=== PATIENT | male | born 1950 | race Two or more races ===

== ENCOUNTER 2019-07-31 09:27 | Inpatient (IN) | payer OTHER ==
[2019-07-23 15:49] VITALS: BMI 30.2
--- NOTE | 2019-07-31 08:01 | HP ---
Satellite [facility] - Chief Complaint Chief Complaint: right knee pain - Past Medical History Allergies/Adverse Reactions: Allergies Allergy/AdvReac Type Severity Reaction Status Date / Time Penicillins Allergy Verified 07/23/19 15:20 - Current Medications Current Medications: Home Medications Medication Instructions Recorded Gabapentin 100 mg PO ASDIR PRN 07/23/19 Lisinopril 5 mg PO DAILY 07/23/19 Methimazole 5 mg PO BID 07/23/19 Metoprolol Succinate [Toprol Xl] 50 mg PO DAILY 07/23/19 Oxycodone HCl/Acetaminophen 1 each PO ASDIR PRN 07/23/19 [Percocet 10-325 mg Tablet] Simvastatin 10 mg PO DAILY 07/23/19 Tamsulosin HCl 0.4 mg PO DAILY 07/23/19 Satellite Physical Exam - Physical Examination General Appearance: Well Nourished, Well Developed, Alert & Oriented x3 ENT: Clear Lung: Normal air movement Extremities: Other (right knee- + swelling, + ttp, decr rom, nvi, xrays show grade 4 tricompartmental djd) Neurological: Intact, Alert, Oriented Satellite Impression/Plan - Impression/Plan Impression: right knee djd Operative Procedure: right randy tkr Date to be Performed: 07/31/19
[2019-07-31] MEDS ORDERED: CELECOXIB 200 MG CAPSULE PO ONE (09:39)
[2019-07-31] MEDS ORDERED: TRANEXAMIC ACID 1000 MG/10 ML VIAL IVPUSH ONE (09:39)
[2019-07-31] MEDS ORDERED: CEFAZOLIN 3 GM in DEXTROSE 5%-WATER - 100 ML IVPB ONE (09:39)
[2019-07-31] MEDS ORDERED: SODIUM CHLORIDE 0.9% P/F 10 ML VIAL IJ ONE (10:16)
[2019-07-31] MEDS ORDERED: MIDAZOLAM HCL 2 MG/2 ML SINGLE DOSE VIAL ONE (10:16)
[2019-07-31] MEDS ORDERED: BUPIVACAINE LIPOSOME/PF (EXPAREL) 266 MG/20 ML VIAL ONE (10:16)
[2019-07-31] MEDS ORDERED: PROPOFOL 20 ML ONE ×2 (10:28→13:18)
[2019-07-31] MEDS ORDERED: VANCOMYCIN 1,000 MG VIAL (RESTRICTED TO ID ONLY) ONE (10:45)
[2019-07-31] MEDS ORDERED: ceFAZolin SODIUM 1 GM VIAL ONE ×2 (10:45→19:49)
[2019-07-31] MEDS ORDERED: GABAPENTIN 100 MG CAPSULE (FP) PO PRN (11:52)
[2019-07-31] MEDS ORDERED: ONDANSETRON 4 MG/2 ML VIAL IVPUSH PRN (11:53)
[2019-07-31] MEDS ORDERED: MAGNESIUM HYDROX 2400MG/30ML ORAL SUSPENSION 30 ML CUP PO PRN (11:53)
[2019-07-31] MEDS ORDERED: MAG HYDROX/AL HYDROX/SIMETH 30 ML UNIT-DOSE CUP PO PRN (11:53)
[2019-07-31] MEDS ORDERED: LACTATED RINGERS SOLUTION 1,000 ML IV SCH (12:00)
[2019-07-31] MEDS ORDERED: VASOPRESSIN 20 UNITS/ML VIAL IV ONE (12:48)
[2019-07-31] MEDS ORDERED: ceFAZolin SODIUM 1 GM VIAL IVPB ONE (13:02)
[2019-07-31] MEDS ORDERED: oxyCODONE HCL 5 MG TABLET PO PRN (13:04)
[2019-07-31] MEDS ORDERED: ACETAMINOPHEN 325 MG TABLET (FP) PO SCH (13:15)
[2019-07-31] MEDS ORDERED: VANCOMYCIN 1,000 MG VIAL (RESTRICTED TO ID ONLY) IVPB ONE (13:34)
--- NOTE | 2019-07-31 13:59 | OP ---
Operative Note - Note: Operative Date: 07/31/19 (gerhard) Pre-Operative Diagnosis: right knee djd Operation: right randy tkr Post-Operative Diagnosis: Same as Pre-op Surgeon: David Grace Lead Manufacturing Engineering Tech: Adria Washington Anesthesiologist/CHIEF PROGRAM OFFICER: Ryan Ruiz Anesthesia: Spinal, Local Specimens Removed: bone fragments Estimated Blood Loss (mls): 150
[2019-07-31] MEDS ORDERED: ACETAMINOPHEN 325 MG TABLET (FP) ONE (14:52)
--- NOTE | 2019-07-31 15:17 | SPEC ---
DATE OF OPERATION: 07/31/2019 PREOPERATIVE DIAGNOSIS: Degenerative joint disease, right knee. POSTOPERATIVE DIAGNOSIS: Degenerative joint disease, right knee. PROCEDURE: Right total knee replacement with robotic-assisted navigation (MAKOplasty). SURGICAL ATTENDING: David Grace MD PIPELINE OPERATOR: SANAZ Villanueva ANESTHESIA: Regional and spinal. CLOSURE: A Press-Fit Triathlon knee system with a 5 femur, 6 tibia, 9 polyethylene, a 38 patella; No. 1 Vicryl fascia; 0 and 2-0 for subcutaneous; and 3-0 Monocryl subcuticular with skin glue for skin; 4-0 undyed Vicryl for pin sites. ESTIMATED BLOOD LOSS: Less than 100 mL. COMPLICATIONS: None. CONDITION: To recovery room in stable condition. DESCRIPTION OF OPERATIVE PROCEDURE: Patient was taken to the operating room on July 31, 2019. Regional and spinal anesthesia was administered by the anesthesiologist. IV Kefzol was administered prophylactically prior to the case as well as TXA. The right lower extremity was prepped and draped in the usual sterile fashion. The midline 10- to 12-cm longitudinal incision was made. Hemostasis was achieved with Bovie cautery. Sharp dissection was carried down to the extensor mechanism which was perform the procedure. Medial parapatellar arthrotomy was then performed, leaving a cuff of tissue for later closure. The patella was inverted and the knee was flexed up. The fat pad was excised. Subperiosteal dissection was done on the anteromedial proximal tibia until the knee was able to be brought forward. This was facilitated by taking the ACL, PCL and medial and lateral menisci. Checkpoints were placed in both the femur and in the tibia. Two parallel threaded pins were drilled superior to the knee joint through the already made incision from anterior to posterior just going through the anterior cortex but just engaging but not going through the posterior cortex. Two threaded pins were drilled through 2 small stab incisions in parallel fashion 1 handbreadth below the tibial tubercle through the anterior cortex of the tibia and engaging but not going through the posterior cortex. Both sets of pins were attached to navigation arrays for the HARLEY system. The knee was then registered with the navigation system with center of rotation of the hip, medial and lateral malleoli and multiple sites both on the tibia and on the femur. Confirmation of excellent registration was confirmed by "popping the bubbles." At this time, the knee was thoroughly inspected to remove all osteophytes around the knee. The knee was then tensioned in varus/valgus at both full extension and at 90 degrees of flexion to ascertain our gaps. The virtual position of the components was optimized to ensure equal gaps throughout the range of motion. Once this was performed, the robot was brought into the field, was registered. The bone was cut as per the specifications on both the tibia and on the femur. The box cuts were then made as well. Excellent trial stability was obtained on the femur. The tibial baseplate was allowed to "find itself" and then was clipped into place. Confirmation of excellent external rotation of that component was confirmed by the navigation device as well.The patella was calibered for thickness and cut at the appropriate level. The appropriate lollipop was used to drill 3 holes in the patella and a trial asymmetric patellar button was applied. The knee was taken through a range of motion and found to have excellent stability from full extension to full flexion with excellent tracking of the patella. The trial components were then removed. The lug holes were drilled in the femur. The cementless keel was punched in the tibia. The real Press-Fit components were malleted into place, first with the tibia and then with the femur, and then the patella was crimped into place as well. The real polyethylene liner was then clipped into place. Range of motion, stability and tracking were as described earlier. The knee was thoroughly irrigated with copious amounts of irrigation. Vancomycin powder was placed inside the joint. The medial parapatellar arthrotomy was then closed using No. 1 Vicryl interrupted suture. Post closure of the arthrotomy, the knee was taken through a range of motion and found to have no undue tension on the repair. The subcutaneous was then pulse antibiotic irrigated, closed with 0 and 2-0 Vicryl and 3-0 Monocryl subcuticular with skin glue for the skin. Prior to closure, the checkpoints were removed as were the threaded pins. The tibial pin sites were closed with 4-0 undyed Vicryl. A sterile pressure Aquacel dressing was applied. No tourniquet was used during the case. The total blood loss was approximately 100 mL. No complication. Patient was transferred to recovery in stable condition. Dana [id number]
[2019-07-31] MEDS: oxyCODONE HCL 5 MG TABLET PO PRN ×2 (17:19→19:57)
[2019-07-31] MEDS ORDERED: DEXTROSE 5%-WATER 100 ML IVPB ONE (19:50)
[2019-07-31] MEDS: CEFAZOLIN 3 GM in DEXTROSE 5%-WATER 100 ML IVPB SCH (19:57)
[2019-07-31] MEDS: oxyCODONE HCL 10 MG SUSTAINED ACTING TABLET PO SCH (21:10)
[2019-07-31] MEDS: traMADol HCL 50 MG TABLET PO PRN (21:10)
[2019-07-31] MEDS: SENNOSIDES/DOCUSATE COMBO (SENNA PLUS) TABLET (UD) PO SCH (21:10)
[2019-07-31] MEDS: METHIMAZOLE 5 MG TABLET (FP) PO SCH (21:10)
[2019-07-31] MEDS: ACETAMINOPHEN 325 MG TABLET (FP) PO SCH (21:11)
[2019-07-31] MEDS ORDERED: HYDROmorphone HCL CARPU-JECT 1 MG/1 ML DISP.SYRIN ONE (22:32)
[2019-07-31] MEDS ORDERED: HYDROmorphone HCL CARPU-JECT 1 MG/1 ML DISP.SYRIN IVPB ONE (22:45)
[2019-07-31] MEDS ORDERED: HYDROmorphone HCL CARPU-JECT 2 MG/1 ML DISP.SYRIN IVPB ONE (22:45)
[2019-08-01] MEDS: oxyCODONE HCL 5 MG TABLET PO PRN ×4 (00:05→18:02)
[2019-08-01] MEDS: ACETAMINOPHEN 325 MG TABLET (FP) PO SCH ×4 (03:00→21:08)
[2019-08-01] MEDS: CEFAZOLIN 3 GM in DEXTROSE 5%-WATER 100 ML IVPB SCH (03:54)
[2019-08-01] MEDS: LISINOPRIL 5 MG TABLET (FP) PO SCH ×2 (06:23→09:47)
--- NOTE | 2019-08-01 07:58 | CONSULT ---
Consult - History of Present Illness History of Present Illness: S/P KNEE REPLACEMENT NO CP OR SOB - Past Medical History Cardio/Vascular: Yes: CAD (s/p stenting), HTN, Hyperlipdemia, [place] Gastrointestinal: Yes: Cancer (colon) Renal/: Yes: Cancer (prostate), Renal Calculi Endocrine: Yes: Diabetes Mellitus - Alcohol/Substance Use Hx Alcohol Use: Yes (7 BEER/DAY,OR COUPLE OF DRINKS) - Smoking History Smoking history: Current every day smoker Have you smoked in the past 12 months: Yes Aproximately how many cigarettes per day: 6 Home Medications - Allergies Allergies/Adverse Reactions: Allergies Allergy/AdvReac Type Severity Reaction Status Date / Time Penicillins Allergy Intermediate Rash Verified 07/31/19 10:09 - Home Medications Home Medications: Ambulatory Orders Gabapentin 100 mg PO ASDIR PRN 07/23/19 Lisinopril 5 mg PO DAILY 07/23/19 Methimazole 5 mg PO BID 07/23/19 Metoprolol Succinate [Toprol Xl] 50 mg PO DAILY 07/23/19 Simvastatin 10 mg PO DAILY 07/23/19 Tamsulosin HCl 0.4 mg PO DAILY 07/23/19 Review of Systems - Review of Systems Cardiovascular: reports: No Symptoms. denies: Chest Pain Respiratory: reports: No Symptoms Gastrointestinal: reports: No Symptoms Genitourinary: reports: No Symptoms Musculoskeletal: reports: Joint Pain, Joint Swelling Physical Exam Vital Signs: Vital Signs Temperature 98.1 F 08/01/19 06:00 Pulse Rate 110 H 08/01/19 07:01 Respiratory Rate 18 08/01/19 07:01 Blood Pressure 137/64 08/01/19 07:01 O2 Sat by Pulse Oximetry (%) 97 08/01/19 06:00 Cardiovascular: Yes: Tachycardia, S1, S2 Respiratory: Yes: Regular, CTA Bilaterally Gastrointestinal: Yes: Normal Bowel Sounds, Soft Musculoskeletal: Yes: Joint Stiffness, Joint Swelling Problem List - Problems (1) S/P knee replacement Assessment/Plan: DVT PROPHYLAXIS ORTHO PT Code(s): Z96.659 - PRESENCE OF UNSPECIFIED ARTIFICIAL KNEE JOINT (2) Hyperthyroidism Assessment/Plan: CHECK TSH ON TAPAZOLE Code(s): E05.90 - THYROTOXICOSIS, UNSP WITHOUT THYROTOXIC CRISIS OR STORM (3) History of colon cancer Code(s): Z85.038 - PERSONAL HISTORY OF MALIGNANT NEOPLASM OF LARGE INTESTINE (4) Tachycardia Assessment/Plan: EKG TSH Code(s): R00.0 - TACHYCARDIA, UNSPECIFIED
[2019-08-01 07:59] LABS: HEMOGLOBIN 10.6 GM/dl (11.7-16.9); MCH 28.7 pg (25.7-33.7); MCHC 33.1 g/dl (32.0-35.9); MEAN CELL VOLUME 86.9 fl (80-96); MEAN PLT VOLUME 8.6 fl (7.5-11.1); PLATELET COUNT 200 K/MM3 (134-434); RBC 3.68 M/mm3 (4.00-5.60); RDW 14.8 % (11.9-15.9); WHITE BLOOD COUNT 8.5 K/mm3 (4.0-10.8)
[2019-08-01 09:03] LABS: ALBUMIN 3.5 g/dl (3.4-5.0); BILIRUBIN,TOTAL 0.9 mg/dl (0.2-1); CALCIUM 9.1 mg/dl (8.5-10); CREATININE 1.5 mg/dl (0.55-1.3); POTASSIUM 4.6 mmol/L (3.5-5.1); TOT PROT 6.9 g/dl (6.4-8.2)
--- NOTE | 2019-08-01 09:18 | PN ---
Progress Note (short form) - Note Progress Note: 69M POD1 s/p right TKR under spinal anesthetic with peripheral nerve blocks for post operative pain relief. Pt states that pain is well controlled and reports no anesthetic complications. AVSS. Continue current regimen.
[2019-08-01] MEDS: ASPIRIN 325 MG TABLET PO SCH (09:43)
[2019-08-01] MEDS: TAMSULOSIN HCL 0.4 MG CAP PO SCH (09:44)
[2019-08-01] MEDS: traMADol HCL 50 MG TABLET PO PRN (09:45)
[2019-08-01] MEDS: ATORVASTATIN CA 10 MG TABLET (FP) PO SCH (09:45)
[2019-08-01] MEDS: oxyCODONE HCL 10 MG SUSTAINED ACTING TABLET PO SCH ×2 (09:46→21:07)
[2019-08-01] MEDS: SENNOSIDES/DOCUSATE COMBO (SENNA PLUS) TABLET (UD) PO SCH ×2 (09:46→21:07)
[2019-08-01] MEDS: MULTIVITAMINS (DAILY MVI) TABLET (FP) PO SCH (09:47)
[2019-08-01] MEDS: PANTOPRAZOLE 40 MG TABLET (FP) PO SCH (09:47)
[2019-08-01] MEDS: METHIMAZOLE 5 MG TABLET (FP) PO SCH ×2 (09:48→21:07)
[2019-08-01] MEDS ORDERED: PATIENT'S OWN MEDICATION (NON-FORMULARY) (Simvastatin [Simvastatin] 10 MG) PO SCH (10:00)
--- NOTE | 2019-08-01 10:22 | PN ---
Progress Note (short form) - Note Progress Note: Ortho Pt seen and examined s/p right randy tkr pod #1 Selected Entries 08/01/19 09:35 Temperature 99.1 F Pulse Rate 105 H Respiratory 18 Rate Blood Pressure 107/60 Laboratory Tests 08/01/19 07:30 WBC 8.5 Hgb 10.6 L Hct 32.0 L Plt Count 200 dressing c/d/i, calf soft ,nt rom 0-40, nvi a/p PT dvt ppx pain control d/c home tomorrow if stable
--- NOTE | 2019-08-01 10:37 | EKG ---
Test Reason : Blood Pressure : / mmHG Vent. Rate : 108 BPM Atrial Rate : 108 BPM P-R Int : 154 ms QRS Dur : 100 ms QT Int : 324 ms P-R-T Axes : 065 -29 069 degrees QTc Int : 434 ms SINUS TACHYCARDIA CANNOT RULE OUT ANTERIOR INFARCT , AGE UNDETERMINED ABNORMAL ECG NO PREVIOUS ECGS AVAILABLE Confirmed by HAYLIE QURESHI, VENKATESH ([id number]) on 08/01/2019 10:36:59 AM Referred By: David Grace Confirmed By:VENKATESH STALLINGS MD
[2019-08-02] MEDS: oxyCODONE HCL 5 MG TABLET PO PRN ×3 (01:44→22:02)
[2019-08-02] MEDS: ACETAMINOPHEN 325 MG TABLET (FP) PO SCH ×4 (02:35→22:02)
[2019-08-02 08:07] LABS: HEMATOCRIT 29.4 % (35.4-49); HEMOGLOBIN 9.4 GM/dl (11.7-16.9); MCH 28.3 pg (25.7-33.7); MCHC 32.1 g/dl (32.0-35.9); MEAN CELL VOLUME 88.3 fl (80-96); MEAN PLT VOLUME 8.7 fl (7.5-11.1); PLATELET COUNT 190 K/MM3 (134-434); RBC 3.32 M/mm3 (4.00-5.60); RDW 15.1 % (11.9-15.9); WHITE BLOOD COUNT 11.2 K/mm3 (4.0-10.8)
--- NOTE | 2019-08-02 08:25 | PN ---
Progress Note (short form) - Note Progress Note: Ortho Pt seen and examined s/p right randy tkr pod #2 Selected Entries 08/02/19 06:00 Temperature 98.2 F Pulse Rate 96 H Respiratory 18 Rate Blood Pressure 115/58 L Laboratory Tests 08/02/19 07:17 WBC Pending Hgb Pending Hct Pending Plt Count Pending dressing c/d/i, calf soft ,nt rom 0-60, nvi a/p PT dvt ppx pain control d/c to snf tomorrow
[2019-08-02] MEDS: ASPIRIN 325 MG TABLET PO SCH (08:37)
[2019-08-02] MEDS: TAMSULOSIN HCL 0.4 MG CAP PO SCH (08:38)
[2019-08-02] MEDS: oxyCODONE HCL 10 MG SUSTAINED ACTING TABLET PO SCH ×2 (09:38→22:02)
[2019-08-02] MEDS: SENNOSIDES/DOCUSATE COMBO (SENNA PLUS) TABLET (UD) PO SCH ×2 (09:39→22:02)
[2019-08-02] MEDS: MULTIVITAMINS (DAILY MVI) TABLET (FP) PO SCH (09:39)
[2019-08-02] MEDS: LISINOPRIL 5 MG TABLET (FP) PO SCH (09:39)
[2019-08-02] MEDS: ATORVASTATIN CA 10 MG TABLET (FP) PO SCH (09:39)
[2019-08-02] MEDS: PANTOPRAZOLE 40 MG TABLET (FP) PO SCH (09:39)
[2019-08-02] MEDS: METHIMAZOLE 5 MG TABLET (FP) PO SCH ×2 (09:40→22:03)
--- NOTE | 2019-08-02 10:09 | PN ---
Progress Note, Physician Chief Complaint: AWAKE ALERT IN PT REHAB IN PAIN 02/05 - Current Medication List Current Medications: Active Medications Acetaminophen (Tylenol -) 650 mg PO Q6H [facility] Stop: 08/03/19 20:59 Last Admin: 08/02/19 09:37 Dose: 650 mg Al Hydroxide/Mg Hydroxide (Mylanta Oral Suspension -) 30 ml PO Q4H PRN PRN Reason: DYSPEPSIA Aspirin (Asa -) 325 mg PO DAILY@0800 [facility] Last Admin: 08/02/19 08:37 Dose: 325 mg Atorvastatin Calcium (Lipitor -) 10 mg PO DAILY [facility] Last Admin: 08/02/19 09:39 Dose: 10 mg Gabapentin (Neurontin -) 100 mg PO ASDIR PRN PRN Reason: PAIN Lisinopril (Prinivil) 5 mg PO DAILY [facility] [place] Last Admin: 08/02/19 09:39 Dose: 5 mg Magnesium Hydroxide (Milk Of Magnesia -) 30 ml PO PRN PRN PRN Reason: CONSTIPATION Methimazole (Tapazole -) 5 mg PO BID [facility] [place] Last Admin: 08/02/19 09:40 Dose: 5 mg Metoprolol Succinate (Toprol Xl -) 50 mg PO DAILY [facility] [place] Last Admin: 08/02/19 09:40 Dose: 50 mg Multivitamins/Minerals/Vitamin C (Tab-A-Vit -) 1 tab PO DAILY [facility] [place] Last Admin: 08/02/19 09:39 Dose: 1 tab Ondansetron HCl (Zofran Injection) 4 mg IVPUSH Q6H PRN PRN Reason: NAUSEA Oxycodone HCl (Roxicodone -) 5 mg PO Q3H PRN PRN Reason: PAIN LEVEL 4 - 6 Last Admin: 08/02/19 08:38 Dose: 5 mg Oxycodone HCl (Roxicodone -) 10 mg PO Q3H PRN PRN Reason: PAIN LEVEL 7 - 10 Last Admin: 08/02/19 01:44 Dose: 10 mg Oxycodone HCl (Oxycontin -) 10 mg PO BID [facility] [place] Stop: 08/03/19 13:05 Last Admin: 08/02/19 09:38 Dose: 10 mg Pantoprazole Sodium (Protonix -) 40 mg PO DAILY [facility] [place] Last Admin: 08/02/19 09:39 Dose: 40 mg Senna/Docusate Sodium (Pericolace -) 2 tablet PO BID [facility] [place] Last Admin: 08/02/19 09:39 Dose: 2 tablet Tamsulosin HCl (Flomax -) 0.4 mg PO DAILY@0830 [facility] [place] Last Admin: 08/02/19 08:38 Dose: 0.4 mg Tramadol HCl (Ultram -) 50 mg PO Q3H PRN PRN Reason: PAIN LEVEL 1 - 3 Last Admin: 08/01/19 09:45 Dose: 50 mg - Objective Vital Signs: Vital Signs Temperature 97.9 F 08/02/19 09:00 Pulse Rate 108 H 08/02/19 09:00 Respiratory Rate 18 08/02/19 09:00 Blood Pressure 110/62 08/02/19 09:00 O2 Sat by Pulse Oximetry (%) 98 08/02/19 06:00 Constitutional: Yes: Mild Distress Cardiovascular: Yes: Regular Rate and Rhythm Respiratory: Yes: WNL Genitourinary: Yes: WNL Musculoskeletal: Yes: Other Extremities: Yes: Other Integumentary: Yes: WNL Wound/Incision: Yes: Dressing Dry and Intact Neurological: Yes: Other ...Motor Strength: RLE Psychiatric: Yes: WNL Labs: CBC, BMP 08/02/19 07:17 08/01/19 08:25 Problem List - Problems (1) S/P knee replacement Code(s): Z96.659 - PRESENCE OF UNSPECIFIED ARTIFICIAL KNEE JOINT Assessment/Plan PT EVAL APPRECIATED TO [facility] TOM[facility]ROW FOR SNF DVT PROPHYLAXIS PAIN CONTROL TOLERATING PO DIET OOB TO CHAIR
--- NOTE | 2019-08-02 12:49 | PATH ---
Surgical Pathology Report Patient Name: MATT BLANCO Med. Rec. #: [id number] /Age/Gender: 1950 (Age: 69) / M Account: [id number] Location: [facility] MED-SURG Taken: 07/31/2019 Received: 07/31/2019 Reported: 08/02/2019 Physicians: David Grace M.D. Specimen(s) Received RIGHT KNEE BONES Clinical History Osteoarthritis right knee Final Diagnosis BONES, KNEE, RIGHT, TOTAL KNEE REPLACEMENT MAKOPLASTY: BONE WITH DEGENERATIVE JOINT DISEASE, FIBROADIPOSE TISSUE, AND SYNOVIUM. Electronically Signed Etta Vergara M.D. Gross Description Received in formalin labeled "right knee bones," is a 10.5 x 9.5 x 2.0 cm aggregate of multiple portions of bone and soft tissue. The tibial plateau measures 8.4 x 5.8 x 1.7 cm. There are multiple areas of eburnation present, measuring up to 2.5 cm in greatest dimension. The remaining articular surfaces are cody-brown and diffusely granular. The underlying trabecular bone is yellow and hard. Head Knitting Machine Fixer sections are submitted in one cassette, following decalcification. 08/01/201908/01/2019
[2019-08-03] MEDS: LISINOPRIL 5 MG TABLET (FP) PO SCH ×2 (05:54→09:23)
[2019-08-03] MEDS: ACETAMINOPHEN 325 MG TABLET (FP) PO SCH ×2 (06:26→09:28)
[2019-08-03] MEDS: oxyCODONE HCL 5 MG TABLET PO PRN (06:48)
[2019-08-03 06:57] VITALS: TEMP 98.5
--- NOTE | 2019-08-03 07:54 | DS ---
Physical Examination Vital Signs: Vital Signs Temperature 98.5 F 08/03/19 04:00 Pulse Rate 127 H 08/03/19 04:00 Respiratory Rate 20 08/03/19 04:00 Blood Pressure 98/46 L 08/03/19 04:00 O2 Sat by Pulse Oximetry (%) 96 08/03/19 04:00 Labs: CBC, BMP 08/02/19 07:17 08/01/19 08:25 Discharge Summary Problems reviewed: Yes Reason For Visit: OSTEOARTHRITIS Current Active Problems History of colon cancer (Acute) Hyperthyroidism (Acute) S/P knee replacement (Acute) Tachycardia (Acute) Procedures: Principal: right tkr Hospital Course: admitted for elective right randy tkr, post-op as per protocol, stable for d/c Condition: Good - Instructions Diet, Activity, Other Instructions: Post-op Instructions-Total Knee Replacement Call the office for a follow-up appointment in 1 week - [phone] Aspirin 325mg daily for 6 weeks. Pain medication was sent into your pharmacy. Apply Graduated Compression Stockings (TEDs) to both lower extremities- remove daily for hygiene ONLY Apply Sequential Compression Device (SCDs) to both Lower extremities remove for PT and hygiene ONLY Apply cold packs to affected area for 15 minutes every 2 hours. Physical Therapist will come to your home for the first 5 days. You will be set up with outpatient PT at your first post-operative visit. Patient may ambulate as tolerated-encourage self care (at least every 2-3 hours while awake) with walker or cane Maintain Aquacel (waterproof) dressing to operative wound (will be removed by surgeon at first office visit) Shower with Aquacel dressing in place-if Aquacel integrity compromised, remove and apply dry sterile dressing and notify Orthopedist. DO NOT SHOWER unless Orthopedists approves without Aquacel dressing CONTACT THE OFFICE FOR ANY CHANGE IN YOUR CONDITION (for example-fever greater than 102 degrees, excessive bleeding from operative site, purulent drainage, severe swelling or pain) GO TO THE EMERGENCY ROOM IF THERE IS A MEDICAL EMERGENCY Knee Precautions: * Keep a rolled towel under affected heel while in bed or chair (to keep knee in extension) * Keep affected leg elevated except during mealtimes * DO NOT PLACE PILLOW UNDER AFFECTED KNEE * If you have any questions, please do not hesitate to call the office - . Referrals: David Grace MD [Staff Physician] - Disposition: CARE HOME FACILITY - Home Medications Comprehensive Discharge Medication List: Ambulatory Orders Gabapentin 100 mg PO ASDIR PRN 07/23/19 Lisinopril 5 mg PO DAILY 07/23/19 Methimazole 5 mg PO BID 07/23/19 Metoprolol Succinate [Toprol Xl] 50 mg PO DAILY 07/23/19 Simvastatin 10 mg PO DAILY 07/23/19 Tamsulosin HCl 0.4 mg PO DAILY 07/23/19 Aspirin [ASA -] 325 mg PO DAILY@0800 tablet 08/03/19 oxyCODONE HCL [Roxicodone -] 5 mg PO Q6H PRN tablet MDD 8 08/03/19
[2019-08-03] MEDS: ASPIRIN 325 MG TABLET PO SCH (09:22)
[2019-08-03] MEDS: TAMSULOSIN HCL 0.4 MG CAP PO SCH (09:22)
[2019-08-03] MEDS: ATORVASTATIN CA 10 MG TABLET (FP) PO SCH (09:22)
[2019-08-03] MEDS: oxyCODONE HCL 10 MG SUSTAINED ACTING TABLET PO SCH (09:23)
[2019-08-03] MEDS: MULTIVITAMINS (DAILY MVI) TABLET (FP) PO SCH (09:23)
[2019-08-03] MEDS: PANTOPRAZOLE 40 MG TABLET (FP) PO SCH (09:23)
[2019-08-03] MEDS: SENNOSIDES/DOCUSATE COMBO (SENNA PLUS) TABLET (UD) PO SCH (09:23)
[2019-08-03] MEDS: METHIMAZOLE 5 MG TABLET (FP) PO SCH (09:23)
[2019-08-03 10:43] VITALS: BP 124/63; PULSE 112
== END 2019-08-03 09:00 | DRG 470 ==
LOC: FM/S 09:27
PROVIDERS: ADMIT Orthopaedic Surgery; ATTEND Orthopaedic Surgery
PROC: 8E0Y0CZ Robotic Assisted Procedure of Lower Extremity, Open Approach (ICD-10-PCS; 2019-07-31)
PROC: 0SRC0JA Replacement of Right Knee Joint with Synthetic Substitute, Uncemented, Open Approach (ICD-10-PCS; principal; 2019-07-31 12:40)
DX: M17.11 Unilateral primary osteoarthritis, right knee (principal); I25.10 Atherosclerotic heart disease of native coronary artery without angina pectoris; I10 Essential (primary) hypertension; E78.5 Hyperlipidemia, unspecified; I25.2 Old myocardial infarction; E11.9 Type 2 diabetes mellitus without complications; F17.210 Nicotine dependence, cigarettes, uncomplicated; E05.90 Thyrotoxicosis, unspecified without thyrotoxic crisis or storm; R00.0 Tachycardia, unspecified; N20.0 Calculus of kidney; Z85.038 Personal history of other malignant neoplasm of large intestine; Z85.46 Personal history of malignant neoplasm of prostate
CPT/HCPCS: 36415; 73560-TC-RT-FY; 80053; 84443; 85027; 93005; 94760; 97116-GP; 97163-GP

== ENCOUNTER 2019-08-08 11:56 | Inpatient (IN) | payer OTHER ==
--- NOTE | 2019-08-08 12:08 | PDOC ---
History of Present Illness - General Chief Complaint: Abnormal Lab Results (Outside) Stated Complaint: LOW HGB Time Seen by Provider: 08/08/19 12:04 History Source: Patient Exam Limitations: No Limitations - History of Present Illness Initial Comments: 08/08/19 12:08 HPI 69 YOM with h/o colon ca, hyperthyroidism, HTN, HLD, arthritis s/p rt TKR on , recently dc'd post op on 08/03/19 presenting from [facility] with anemia. c/o mild headache, but no other symptoms. recent rt TKR on 07/31/[address] Grace - no complications including bleeding post op. Denies fever, chills, chest pain, SOB, palpitation, dizziness, weakness, N, V, D , abdominal pain, bladder and bowel problems, focal weakness/paresthesias, leg swelling/pain, rash. Allergies: pcn Past Medical History/PSH: as above Social history: Lives with family. No tobacco, ETOH or drug use. Meds: as documented in EMR Family history: noncontributory PMD Dr Wilson/Taylor Review of systems Constitutional: no fevers or chills. No weakness HEENT: +headache No dizziness. No visual/hearing disturbances. CVS: no cp or syncope. Resp: no sob. No cough. Gastrointestinal: no abdominal pain, nausea, vomiting, diarrhea. no bloody stools Genitourinary: no urinary sx, hematuria. MUSCULOSKELETAL: No joint pain and swelling. No neck or back pain. SKIN: no redness or skin changes, no discharge, no rash. No wounds. Hematologic: no easy bruising/bleeding. +anemia. NEUROLOGIC: +headache, no dizziness, LOC or altered mental status. No weakness, numbness or tingling. Psych: no anxiety or depression Allergic/Immunologic: no allergies All other systems reviewed and negative, or as documented in HPI. Physical exam General: Well appearing, awake and alert, NAD. HEENT: NCAT, PERRL, EOMI, pale conjunctiva, anicteric, moist mucus membranes, clear oropharynx, no oral lesions.. Neck: neck supple, FROM Resp: CTAB, normal and even respirations, no respiratory distress CVS: regular rhythm +tachycardic, no murmurs, 2+ peripheral pulses throughout, no peripheral edema Abdomen: soft, NTND, no rebound or guarding. Rectal: no gross bleeding, no masses or hemorrhoids, soft brown stool, guaiac positive. Back: nontender, normal inspection and ROM MSK: no edema, BLUE x4, ROM intact. No clubbing or cyanosis. normal bulk and tone. +right vertical TKR scar, well healing, nontender. +anterolateral knee soft tissue swelling Extremities: no calf tenderness Neuro: alert, oriented appropriately; no focal neurologic deficits Psych: Calm and cooperative Skin: warm and well perfused, cap refill <2 sec, normal color, no rash or skin discoloration. 08/08/19 12:22 08/08/19 12:24 08/08/19 15:24 Past History - Past Medical History Allergies/Adverse Reactions: Allergies Allergy/AdvReac Type Severity Reaction Status Date / Time Penicillins Allergy Intermediate Rash Verified 07/31/19 10:09 Home Medications: Ambulatory Orders Gabapentin 100 mg PO ASDIR PRN 07/23/19 Lisinopril 5 mg PO DAILY 07/23/19 Methimazole 5 mg PO BID 07/23/19 Metoprolol Succinate [Toprol Xl] 50 mg PO DAILY 07/23/19 Simvastatin 10 mg PO DAILY 07/23/19 Tamsulosin HCl 0.4 mg PO DAILY 07/23/19 Aspirin [ASA -] 325 mg PO DAILY@0800 tablet 08/03/19 oxyCODONE HCL [Roxicodone -] 5 mg PO Q6H PRN tablet MDD 8 08/03/19 Anemia: No Asthma: No Cancer: Yes (PROSTATE,COLON) Cardiac Disorders: No CVA: No COPD: No CHF: No Dementia: No Diabetes: No GI Disorders: No Disorders: Yes (KIDNEY STONES) HTN: Yes Hypercholesterolemia: Yes Liver Disease: Yes (INFLAMMATION) Seizures: No Thyroid Disease: Yes (HYPERACTIVE THYROID) - Surgical History Abdominal Surgery: Yes (COLON RESECTION 1994,CHEMO,HERNIA REPAIR) Appendectomy: No Cardiac Surgery: No Cholecystectomy: No Lung Surgery: No Neurologic Surgery: No Orthopedic Surgery: Yes - Psycho Social/Smoking Cessation Hx Smoking History: Current every day smoker Have you smoked in the past 12 months: Yes Number of Cigarettes Smoked Daily: 6 Hx Alcohol Use: Yes (7 BEER/DAY,OR COUPLE OF DRINKS) Drug/Substance Use Hx: No Substance Use Type: Alcohol Hx Substance Use Treatment: No ED Treatment Course - LABORATORY CBC & Chemistry Diagram: 08/08/19 13:40 08/08/19 11:40 Medical Decision Making - Medical Decision Making 08/08/19 15:26 Vital Signs Temp Pulse Resp BP Pulse Ox 100.0 F H 102 H 17 115/67 100 08/08/19 12:02 08/08/19 14:31 08/08/19 12:02 08/08/19 14:31 08/08/19 14:31 vitals notable for LGF, tachycardia noted. prior history of tachy as well. no source of infection. post op knee without s/s of septic arthritis, wound site is healing, no purulence or erythema. tylenol for LGF, Tmax 100 labs and lytes with anemia noted, 7.4/22.4 txs sent coags wnl anemia workup sent, appears to be iron deficiency transfuse 1 unit, close monitor consented for blood, discussed risks and benefits as documented including TRALI , TACO, fever, myalgias, allergic rxn/anaphylaxis, immune reaction, incompatibility, infection, low risk of transmission of Hep B/C and HIV. guaiac positive, h/o colon ca. could be occult LGIB. however no gross bleeding, hematochezia or melena or tarry stools. GI called, spoke with Dr [place], agree with plan, clear liquids, will see in AM for possible scoping. PPI empirically called to Dr Grace/Jn group, spoke with Adria Washington, will eval patient, discussed case and agree to plan admitting for anemia, transfuse, close monitoring, supportive care and trend H/H /anemia, possible intervention/scoping to delineate source of anemia. admitting to [facility], under Dr Vazquez. 08/08/19 16:20 Discharge - Discharge Information Problems reviewed: Yes Clinical Impression/Diagnosis: Occult blood in stools, Tachycardia Anemia Qualifiers: Anemia type: other cause Other causes of anemia: other cause, not classified Qualified Code(s): D64.89 - Other specified anemias Condition: Stable - Admission Yes - Follow up/Referral - Patient Discharge Instructions - Post Discharge Activity
[2019-08-08 14:00] LABS: BASO % 2.1 % (0-2.0); EOS % 0.4 % (0-4.5); HEMATOCRIT 22.4 % (35.4-49); HEMOGLOBIN 7.4 GM/dl (11.7-16.9); MCH 28.5 pg (25.7-33.7); MCHC 33.1 g/dl (32.0-35.9); MEAN CELL VOLUME 86.1 fl (80-96); MEAN PLT VOLUME 8.6 fl (7.5-11.1); MONO % 15.9 % (3.8-10.2); NEUT % 67.6 % (42.8-82.8); PLATELET COUNT 445 K/MM3 (134-434); RDW 14.7 % (11.9-15.9); WHITE BLOOD COUNT 9.2 K/mm3 (4.0-10.8)
[2019-08-08 14:20] LABS: BILIRUBIN,TOTAL 1.3 mg/dl (0.2-1); CALCIUM 8.5 mg/dl (8.5-10); CREATININE 1.2 mg/dl (0.55-1.3); POTASSIUM 3.9 mmol/L (3.5-5.1); TOT PROT 6.9 g/dl (6.4-8.2)
[2019-08-08 14:29] LABS: ACTIVATED PTT 25.3 SECONDS (25.2-36.5)
[2019-08-08 14:34] LABS: INR 1.45 (0.82-1.09); PROTHROMBIN TIME (PATIENT) 16.1 SEC (10.2-13.0)
[2019-08-08 15:05] VITALS: BMI 29.5
[2019-08-08 15:24] LABS: IRON SERUM 31 ug/dL (50-175); TOTAL IRON BINDING CAPACITY 331 ug/dL (250-450)
[2019-08-08] MEDS ORDERED: PANTOPRAZOLE SODIUM 40 MG VIAL IVPUSH ONE (15:51)
[2019-08-08] MEDS ORDERED: ACETAMINOPHEN 325 MG TABLET (FP) PO ONE (16:19)
[2019-08-08] MEDS ORDERED: PANTOPRAZOLE SODIUM 40 MG VIAL ONE (16:32)
[2019-08-08] MEDS ORDERED: ACETAMINOPHEN 325 MG TABLET (FP) ONE (16:32)
[2019-08-08] MEDS ORDERED: D5-1/2NS+20 MEQ KCL - 20 MEQ/1,000 ML INFUS.BAG IV SCH (19:00)
[2019-08-08] MEDS: PANTOPRAZOLE SODIUM 40 MG VIAL IVPUSH SCH (22:29)
[2019-08-08] MEDS: ATORVASTATIN CA 10 MG TABLET (FP) PO SCH (22:30)
[2019-08-08] MEDS: METHIMAZOLE 5 MG TABLET (FP) PO SCH (22:30)
[2019-08-09] MEDS: oxyCODONE HCL 5 MG TABLET PO PRN ×2 (06:01→19:38)
[2019-08-09 08:17] LABS: BASO % 0.3 % (0-2.0); EOS % 1.4 % (0-4.5); HEMATOCRIT 22.8 % (35.4-49); HEMOGLOBIN 7.6 GM/dl (11.7-16.9); LYMPH % 14.7 % (8-40); MCH 28.8 pg (25.7-33.7); MCHC 33.3 g/dl (32.0-35.9); MEAN CELL VOLUME 86.6 fl (80-96); MEAN PLT VOLUME 8.6 fl (7.5-11.1); MONO % 13.1 % (3.8-10.2); NEUT % 70.5 % (42.8-82.8); PLATELET COUNT 445 K/MM3 (134-434); RBC 2.63 M/mm3 (4.00-5.60); RDW 14.4 % (11.9-15.9); WHITE BLOOD COUNT 8.3 K/mm3 (4.0-10.8)
[2019-08-09 08:23] LABS: ALBUMIN 2.7 g/dl (3.4-5.0); BILIRUBIN,TOTAL 1.3 mg/dl (0.2-1); CALCIUM 8.6 mg/dl (8.5-10); CREATININE 1.1 mg/dl (0.55-1.3); POTASSIUM 4.2 mmol/L (3.5-5.1); TOT PROT 6.4 g/dl (6.4-8.2)
--- NOTE | 2019-08-09 08:40 | PN ---
Progress Note (short form) - Note Progress Note: Patient seen and chart/labs reviewed with consult dictated. Patient with drop in Hct and heme + stool (no abdominal pain/sx) Has hx of colon cancer 25 years ago and has had periodic colonoscopies (Dr De Guzman) No hx of GI bleed, anemia and denies use of NSAIDs, ASA. On PPI and ?for PRBC transfusion Will arrange for EGD today
--- NOTE | 2019-08-09 08:40 | CON.ORTH ---
Consult Reason for Consultation:: low h/h s/p tkr - Past Medical History Cardio/Vascular: Yes: CAD (s/p stenting), HTN, Hyperlipdemia, [place] Gastrointestinal: Yes: Cancer (colon) Renal/: Yes: Cancer (prostate), Renal Calculi Endocrine: Yes: Diabetes Mellitus - Alcohol/Substance Use Hx Alcohol Use: Yes (7 BEER/DAY,OR COUPLE OF DRINKS) - Smoking History Smoking history: Current every day smoker Have you smoked in the past 12 months: Yes Aproximately how many cigarettes per day: 6 Home Medications - Allergies Allergies/Adverse Reactions: Allergies Allergy/AdvReac Type Severity Reaction Status Date / Time Penicillins Allergy Intermediate Rash Verified 08/08/19 17:00 - Home Medications Home Medications: Ambulatory Orders Lisinopril 5 mg PO DAILY 07/23/19 Methimazole 5 mg PO BID 07/23/19 Metoprolol Succinate [Toprol Xl] 50 mg PO DAILY 07/23/19 Simvastatin 10 mg PO DAILY 07/23/19 Tamsulosin HCl 0.4 mg PO DAILY 07/23/19 Aspirin [ASA -] 325 mg PO DAILY@0800 tablet 08/03/19 oxyCODONE HCL [Roxicodone -] 5 mg PO Q6H PRN tablet MDD 8 08/03/19 Physical Exam for Ortho Vital Signs: Vital Signs Temperature 98.4 F 08/09/19 05:50 Pulse Rate 94 H 08/09/19 05:50 Respiratory Rate 18 08/09/19 05:50 Blood Pressure 112/60 08/09/19 05:50 O2 Sat by Pulse Oximetry (%) 100 08/09/19 05:50 Labs: CBC, BMP 08/09/19 07:20 08/09/19 07:20 INR, PTT INR 1.45 (0.82-1.09) H 08/08/19 11:40 - Lower Extremity Ankle: Yes: Right, Other (incision well healed, minimal swelling, no erythema, rom 0-100, calf soft, nt, nvi) Assessment/Plan 69 YOM with h/o colon ca, hyperthyroidism, HTN, HLD, arthritis s/p rt TKR on , recently dc'd post op on 08/03/19 presenting from [facility] with anemia. c/o mild headache, but no other symptoms. recent rt TKR on 07/31/[address] Grace - no complications including bleeding post op. Denies fever, chills, chest pain, SOB, palpitation, dizziness, weakness, N, V, D, abdominal pain, bladder and bowel problems, focal weakness/paresthesias, leg swelling/pain, rash. a/p 1 week s/p right randy tkr, low h/h s/p transfusion Right TKR normal post-op appearance- doing well positive heme in stool GI consulted- EGD today hold post-op ASA transfused 1 unit, f/u h/h PT once cleared by GI will follow d/w Dr. Grace
[2019-08-09] MEDS ORDERED: LIDOCAINE HCL/PF 2% SDV 5ML VIAL ONE (08:54)
[2019-08-09] MEDS ORDERED: PATIENT'S OWN MEDICATION (NON-FORMULARY) (Simvastatin [Simvastatin] 10 MG) PO SCH (10:00)
--- NOTE | 2019-08-09 10:16 | PN ---
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
[2019-08-09] MEDS: PANTOPRAZOLE SODIUM 40 MG VIAL IVPUSH SCH ×2 (10:53→21:26)
[2019-08-09] MEDS: TAMSULOSIN HCL 0.4 MG CAP PO SCH (10:53)
[2019-08-09] MEDS: METHIMAZOLE 5 MG TABLET (FP) PO SCH ×2 (11:00→21:27)
--- NOTE | 2019-08-09 13:42 | HP ---
Admitting History and Physical - Admission Chief Complaint: sent in for low h/h History of Present Illness: 69 YOM with h/o colon ca, hyperthyroidism, HTN, HLD, arthritis s/p rt TKR on , recently dc'd post op on 08/03/19 presenting from [facility] with anemia. c/o mild headache, but no other symptoms. recent rt TKR on 07/31/[address] Grace - no complications including bleeding post op.per patient he had blood work done at [facility] and found to have low h/h Denies fever, chills, chest pain, SOB, palpitation, dizziness, weakness, N, V, D , abdominal pain, bladder and bowel problems, focal weakness/paresthesias, leg swelling/pain, rash. - Past Medical History Cardiovascular: Yes: CAD (s/p stenting), HTN, Hyperlipdemia, [place] Gastrointestinal: Yes: Cancer (colon) Renal/: Yes: Cancer (prostate), Renal Calculi Endocrine: Yes: Diabetes Mellitus - Smoking History Smoking history: Current every day smoker Have you smoked in the past 12 months: Yes Aproximately how many cigarettes per day: 6 - Alcohol/Substance Use Hx Alcohol Use: Yes (7 BEER/DAY,OR COUPLE OF DRINKS) Home Medications - Allergies Allergies/Adverse Reactions: Allergies Allergy/AdvReac Type Severity Reaction Status Date / Time Penicillins Allergy Intermediate Rash Verified 08/08/19 17:00 - Home Medications Home Medications: Ambulatory Orders Lisinopril 5 mg PO DAILY 07/23/19 Methimazole 5 mg PO BID 07/23/19 Metoprolol Succinate [Toprol Xl] 50 mg PO DAILY 07/23/19 Simvastatin 10 mg PO DAILY 07/23/19 Tamsulosin HCl 0.4 mg PO DAILY 07/23/19 Aspirin [ASA -] 325 mg PO DAILY@0800 tablet 08/03/19 oxyCODONE HCL [Roxicodone -] 5 mg PO Q6H PRN tablet MDD 8 08/03/19 Review of Systems - Review of Systems HENT: reports: No Symptoms Neck: reports: No Symptoms Cardiovascular: reports: No Symptoms Respiratory: reports: No Symptoms Physical Examination Vital Signs: Vital Signs Temperature 98.6 F 08/09/19 13:31 Pulse Rate 93 H 08/09/19 13:31 Respiratory Rate 20 08/09/19 13:31 Blood Pressure 108/66 08/09/19 13:31 O2 Sat by Pulse Oximetry (%) 100 08/09/19 08:40 Labs: CBC, BMP 08/09/19 07:20 08/09/19 07:20 Imaging - Results Other: Other (EGD; gastritis, non bleeding ulcer and angiodysplastic lesion in duodenal bulb noted) Problem List - Problems (1) Anemia Assessment/Plan: prbc second unit today iv venofer x3 doses- first dose today iron panel noted s/p egd PPI avoid aspirin and nSAID repeat cbc after prbc Code(s): D64.9 - ANEMIA, UNSPECIFIED Qualifiers: Anemia type: other cause Other causes of anemia: other cause, not classified Qualified Code(s): D64.89 - Other specified anemias (2) S/P knee replacement Assessment/Plan: appricate ortho note PT hold aspirin Code(s): Z96.659 - PRESENCE OF UNSPECIFIED ARTIFICIAL KNEE JOINT (3) Hyperthyroidism Assessment/Plan: tapazole Code(s): E05.90 - THYROTOXICOSIS, UNSP WITHOUT THYROTOXIC CRISIS OR STORM
[2019-08-09] MEDS ORDERED: IRON SUCROSE INJECTION 200 MG in SODIUM CHLORIDE 90 ML IVPB ONE ×2 (14:00→18:45)
[2019-08-09] MEDS ORDERED: ACETAMINOPHEN 325 MG TABLET (FP) PO ONE (14:28)
[2019-08-09] MEDS ORDERED: ACETAMINOPHEN 1000 MG/100 ML VIAL (NON FORMULARY) IVPB ONE (14:30)
--- NOTE | 2019-08-09 16:07 | CONS ---
DATE OF CONSULTATION: 08/09/2019 HISTORY: Asked to evaluate this 69-year-old gentleman admitted via the emergency room with anemia. The patient is a 69-year-old gentleman with a history of hypertension, hypercholesterolemia, hypothyroidism as well as a history of colon cancer status post resection 25 years ago. He has a history of arthritis and is status post right total knee replacement on July 31, 2019. He was mildly anemic at the time of discharge but had a drop in his hematocrit prompting his current admission. He denies any abdominal pain, nausea, vomiting. Has no prior history of peptic ulcer disease and denies the use of aspirin or NSAIDs. However, in the emergency room, he was noted to be slightly pale with blood counts including a hemoglobin of 7.4, hematocrit of 22.8, and a platelet count of 445,000. His INR was 1.45 and his electrolytes notable for a BUN of 18 and a creatinine of 1.2. His serum iron was 31, which is borderline low with a 9% saturation, which is low as well. The patient was also noted to have Hemocult-positive stool. PHYSICAL EXAMINATION: General: He is a well-developed, well-nourished gentleman. HEENT: Slightly pale conjunctivae. No icterus. Lungs: Clear. Cardiac: Regular rate and rhythm. Abdomen: Soft, flat, and nontender. A 69-year-old gentleman with an iron-deficiency anemia and a drop in hematocrit over the past week with slight fatigue but no abdominal complaints. Has a history of colon cancer many years ago and has had periodic colonoscopies by another senior ui designer the last of which was several years ago. The patient states he has also had an upper endoscopy many years ago but is unsure what the test was done for or the findings. At the present time, in view of his drop in hematocrit in the setting of recent knee surgery, we will arrange for an upper endoscopy and continue patient empirically on PPI therapy. Further recommendations to follow. VINICIO REEVES M.D. [id number]
[2019-08-09] MEDS: ATORVASTATIN CA 10 MG TABLET (FP) PO SCH (21:26)
[2019-08-10] MEDS: oxyCODONE HCL 5 MG TABLET PO PRN ×3 (03:32→23:18)
[2019-08-10 07:55] LABS: BASO % 0.4 % (0-2.0); EOS % 1.8 % (0-4.5); HEMATOCRIT 24.8 % (35.4-49); HEMOGLOBIN 8.3 GM/dl (11.7-16.9); LYMPH % 15.3 % (8-40); MCH 29.3 pg (25.7-33.7); MCHC 33.5 g/dl (32.0-35.9); MEAN CELL VOLUME 87.6 fl (80-96); MEAN PLT VOLUME 8.3 fl (7.5-11.1); MONO % 12.4 % (3.8-10.2); NEUT % 70.1 % (42.8-82.8); PLATELET COUNT 483 K/MM3 (134-434); RBC 2.83 M/mm3 (4.00-5.60); RDW 14.1 % (11.9-15.9); WHITE BLOOD COUNT 8.4 K/mm3 (4.0-10.8)
[2019-08-10 08:46] LABS: ALBUMIN 2.6 g/dl (3.4-5.0); BILIRUBIN,TOTAL 0.9 mg/dl (0.2-1); CALCIUM 8.8 mg/dl (8.5-10); POTASSIUM 4.2 mmol/L (3.5-5.1); TOT PROT 6.2 g/dl (6.4-8.2)
[2019-08-10 08:48] LABS: CHOLESTEROL 109 mg/dl (50-200); HDL CHOLESTEROL 21 mg/dl (40-60); LDL CHOLESTEROL (ONLY DFH) 70 mg/dl (5-100); TRIGLYCERIDES 88 mg/dl (0-150)
[2019-08-10] MEDS: TAMSULOSIN HCL 0.4 MG CAP PO SCH (09:50)
[2019-08-10] MEDS: METHIMAZOLE 5 MG TABLET (FP) PO SCH ×2 (09:51→21:48)
[2019-08-10] MEDS: PANTOPRAZOLE SODIUM 40 MG VIAL IVPUSH SCH ×2 (09:51→21:48)
--- NOTE | 2019-08-10 10:55 | PN ---
Progress Note, Physician Chief Complaint: AWAKE ALERT S/P EGD DENIES FEVER/CHILLS/ NO CHEST PAIN OR SOB STRUGGLING USING A WALKER TO AMBULATE - Current Medication List Current Medications: Active Medications Atorvastatin Calcium (Lipitor -) 10 mg PO HS [facility] Last Admin: 08/09/19 21:26 Dose: 10 mg Methimazole (Tapazole -) 5 mg PO BID [facility] Last Admin: 08/10/19 09:51 Dose: 5 mg Metoprolol Succinate (Toprol Xl -) 50 mg PO DAILY [facility] Last Admin: 08/10/19 09:50 Dose: 50 mg Oxycodone HCl (Roxicodone -) 5 mg PO Q6H PRN PRN Reason: PAIN LEVEL 6-10 Last Admin: 08/10/19 09:51 Dose: 5 mg Pantoprazole Sodium (Protonix Iv) 40 mg IVPUSH BID [facility] Last Admin: 08/10/19 09:51 Dose: 40 mg Tamsulosin HCl (Flomax -) 0.4 mg PO DAILY@0830 [facility] Last Admin: 08/10/19 09:50 Dose: 0.4 mg - Objective Vital Signs: Vital Signs Temperature 99.6 F 08/10/19 10:00 Pulse Rate 101 H 08/10/19 10:00 Respiratory Rate 20 08/10/19 10:00 Blood Pressure 95/59 L 08/10/19 10:00 O2 Sat by Pulse Oximetry (%) 99 08/10/19 09:00 Constitutional: Yes: Mild Distress Cardiovascular: Yes: Regular Rate and Rhythm Respiratory: Yes: WNL Gastrointestinal: Yes: WNL Musculoskeletal: Yes: Joint Stiffness, Muscle Weakness Extremities: Yes: Other Wound/Incision: Yes: Open to air (RIGHT KNEE CLEAN SCAR WITH SUTURES) Labs: CBC, BMP 08/10/19 07:34 08/10/19 07:34 INR, PTT INR 1.45 (0.82-1.09) H 08/08/19 11:40 Problem List - Problems (1) Anemia Code(s): D64.9 - ANEMIA, UNSPECIFIED Qualifiers: Anemia type: other cause Other causes of anemia: other cause, not classified Qualified Code(s): D64.89 - Other specified anemias (2) Occult blood in stools Code(s): R19.5 - OTHER FECAL ABNORMALITIES (3) S/P knee replacement Code(s): Z96.659 - PRESENCE OF UNSPECIFIED ARTIFICIAL KNEE JOINT Assessment/Plan EGD COMPLETE AWAIT BIOPSY PATHOLOGY TRANSFUSE PRBC NEEDED 2 MORE IV DOSES OF FERROUS SULFATE PT REHAB DAILY MOTIVATE AND ENCOURAGE
[2019-08-10] MEDS: IRON SUCROSE INJECTION 300 MG in SODIUM CHLORIDE 235 ML IVPB SCH (18:22)
[2019-08-10] MEDS: ATORVASTATIN CA 10 MG TABLET (FP) PO SCH (21:48)
[2019-08-11] MEDS: TAMSULOSIN HCL 0.4 MG CAP PO SCH (08:29)
[2019-08-11 08:30] LABS: HEMOGLOBIN 8.5 GM/dl (11.7-16.9); MEAN PLT VOLUME 8.6 fl (7.5-11.1)
[2019-08-11 08:40] LABS: HEMATOCRIT 25.5 % (35.4-49); MCHC 33.5 g/dl (32.0-35.9); MEAN CELL VOLUME 86.8 fl (80-96); PLATELET COUNT 578 K/MM3 (134-434); RBC 2.94 M/mm3 (4.00-5.60); RDW 14.5 % (11.9-15.9); WHITE BLOOD COUNT 8.7 K/mm3 (4.0-10.8)
[2019-08-11] MEDS: PANTOPRAZOLE SODIUM 40 MG VIAL IVPUSH SCH ×2 (10:15→21:16)
[2019-08-11] MEDS: METHIMAZOLE 5 MG TABLET (FP) PO SCH ×2 (10:32→21:16)
[2019-08-11] MEDS ORDERED: PT OWN MED DRAWER 7, Y5N ONE (10:37)
[2019-08-11] MEDS: IRON SUCROSE INJECTION 300 MG in SODIUM CHLORIDE 235 ML IVPB SCH (10:55)
--- NOTE | 2019-08-11 11:19 | PN ---
Progress Note, Physician - Current Medication List Current Medications: Active Medications Atorvastatin Calcium (Lipitor -) 10 mg PO HS [facility] Last Admin: 08/10/19 21:48 Dose: 10 mg Iron Sucrose 300 mg/ Sodium (Chloride) 250 mls @ 125 mls/hr IVPB DAILY [facility] Stop: 08/11/19 11:59 Last Admin: 08/10/19 18:22 Dose: 125 mls/hr Methimazole (Tapazole -) 5 mg PO BID [facility] Last Admin: 08/10/19 21:48 Dose: 5 mg Metoprolol Succinate (Toprol Xl -) 50 mg PO DAILY [facility] Last Admin: 08/10/19 09:50 Dose: 50 mg Oxycodone HCl (Roxicodone -) 5 mg PO Q6H PRN PRN Reason: PAIN LEVEL 6-10 Last Admin: 08/10/19 23:18 Dose: 5 mg Pantoprazole Sodium (Protonix Iv) 40 mg IVPUSH BID [facility] Last Admin: 08/10/19 21:48 Dose: 40 mg Tamsulosin HCl (Flomax -) 0.4 mg PO DAILY@0830 [facility] Last Admin: 08/11/19 08:29 Dose: 0.4 mg - Objective Vital Signs: Vital Signs Temperature 98.1 F 08/11/19 06:00 Pulse Rate 83 08/11/19 06:00 Respiratory Rate 18 08/11/19 06:00 Blood Pressure 118/64 08/11/19 06:00 O2 Sat by Pulse Oximetry (%) 100 08/11/19 06:00 Cardiovascular: Yes: Regular Rate and Rhythm Respiratory: Yes: Regular, CTA Bilaterally Gastrointestinal: Yes: Normal Bowel Sounds, Soft. 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 and a shallow antral ulcer (biopsies taken in antrum to r/o H pylori) PPI avoid aspirin and ANSAIDS repeat cbc Code(s): D64.9 - ANEMIA, UNSPECIFIED Qualifiers: Anemia type: other cause Other causes of anemia: other cause, not classified Qualified Code(s): D64.89 - Other specified anemias (2) History of colon cancer Code(s): Z85.038 - PERSONAL HISTORY OF MALIGNANT NEOPLASM OF LARGE INTESTINE (3) Hyperthyroidism Assessment/Plan: appricate ortho note PT hold aspirin Code(s): E05.90 - THYROTOXICOSIS, UNSP WITHOUT THYROTOXIC CRISIS OR STORM (4) S/P knee replacement Assessment/Plan: tapazole Code(s): Z96.659 - PRESENCE OF UNSPECIFIED ARTIFICIAL KNEE JOINT
[2019-08-11] MEDS: oxyCODONE HCL 5 MG TABLET PO PRN (16:32)
[2019-08-11] MEDS: ATORVASTATIN CA 10 MG TABLET (FP) PO SCH (21:16)
[2019-08-12] MEDS: oxyCODONE HCL 5 MG TABLET PO PRN ×2 (01:45→09:55)
[2019-08-12] MEDS: TAMSULOSIN HCL 0.4 MG CAP PO SCH (08:30)
[2019-08-12] MEDS: PANTOPRAZOLE SODIUM 40 MG VIAL IVPUSH SCH ×2 (10:00→21:11)
[2019-08-12] MEDS: METHIMAZOLE 5 MG TABLET (FP) PO SCH ×2 (10:00→21:11)
[2019-08-12 10:03] LABS: HEMATOCRIT 27.7 % (35.4-49); MCH 28.4 pg (25.7-33.7); MCHC 32.5 g/dl (32.0-35.9); MEAN CELL VOLUME 87.2 fl (80-96); PLATELET COUNT 638 K/MM3 (134-434); RBC 3.18 M/mm3 (4.00-5.60); RDW 14.9 % (11.9-15.9); WHITE BLOOD COUNT 7.6 K/mm3 (4.0-10.8)
[2019-08-12 10:35] LABS: PLATELET ESTIMATE SLT INCREASE
--- NOTE | 2019-08-12 11:26 | PN ---
Progress Note, Physician - Current Medication List Current Medications: Active Medications Atorvastatin Calcium (Lipitor -) 10 mg PO HS [facility] Last Admin: 08/11/19 21:16 Dose: 10 mg Methimazole (Tapazole -) 5 mg PO BID [facility] Last Admin: 08/12/19 10:00 Dose: 5 mg Metoprolol Succinate (Toprol Xl -) 50 mg PO DAILY [facility] Last Admin: 08/12/19 10:00 Dose: 50 mg Oxycodone HCl (Roxicodone -) 5 mg PO Q6H PRN PRN Reason: PAIN LEVEL 6-10 Last Admin: 08/12/19 09:55 Dose: 5 mg Pantoprazole Sodium (Protonix Iv) 40 mg IVPUSH BID [facility] Last Admin: 08/12/19 10:00 Dose: 40 mg Tamsulosin HCl (Flomax -) 0.4 mg PO DAILY@0830 [facility] Last Admin: 08/12/19 08:30 Dose: 0.4 mg - Objective Vital Signs: Vital Signs Temperature 98.5 F 08/12/19 06:00 Pulse Rate 81 08/12/19 06:00 Respiratory Rate 19 08/12/19 06:00 Blood Pressure 119/70 08/12/19 06:00 O2 Sat by Pulse Oximetry (%) 99 08/12/19 06:00 Cardiovascular: Yes: Regular Rate and Rhythm Respiratory: Yes: Regular, CTA Bilaterally Gastrointestinal: Yes: Normal Bowel Sounds, Soft Labs: CBC, BMP 08/12/19 10:00 08/10/19 07:34 INR, PTT INR 1.45 (0.82-1.09) H 08/08/19 11:40 Problem List - Problems (1) Anemia Assessment/Plan: s/p prbc iv venofer x3 doses- given iron panel noted s/p egd Upper endoscopy performed with findings notable for a small duodenal bulb AVM - ablated, 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 and a shallow antral ulcer (biopsies taken in antrum to r/o H pylori) PPI avoid aspirin and ANSAIDS repeat cbc--hg 9 Code(s): D64.9 - ANEMIA, UNSPECIFIED Qualifiers: Anemia type: other cause Other causes of anemia: other cause, not classified Qualified Code(s): D64.89 - Other specified anemias (2) History of colon cancer Code(s): Z85.038 - PERSONAL HISTORY OF MALIGNANT NEOPLASM OF LARGE INTESTINE (3) Hyperthyroidism Assessment/Plan: appricate ortho note PT hold aspirin Code(s): E05.90 - THYROTOXICOSIS, UNSP WITHOUT THYROTOXIC CRISIS OR STORM (4) S/P knee replacement Assessment/Plan: tapazole Code(s): Z96.659 - PRESENCE OF UNSPECIFIED ARTIFICIAL KNEE JOINT
[2019-08-12] MEDS: ATORVASTATIN CA 10 MG TABLET (FP) PO SCH (21:10)
[2019-08-13] MEDS: oxyCODONE HCL 5 MG TABLET PO PRN ×2 (05:32→09:43)
[2019-08-13 07:18] LABS: HEMATOCRIT 27.9 % (35.4-49); HEMOGLOBIN 9.3 GM/dl (11.7-16.9); MCHC 33.3 g/dl (32.0-35.9); MEAN CELL VOLUME 87.1 fl (80-96); PLATELET COUNT 680 K/MM3 (134-434); RDW 15.3 % (11.9-15.9); WHITE BLOOD COUNT 7.7 K/mm3 (4.0-10.8)
--- NOTE | 2019-08-13 08:34 | DS ---
Physical Examination Vital Signs: Vital Signs Temperature 97.9 F 08/13/19 06:00 Pulse Rate 77 08/13/19 06:00 Respiratory Rate 17 08/13/19 06:00 Blood Pressure 120/79 08/13/19 06:00 O2 Sat by Pulse Oximetry (%) 100 08/13/19 06:00 Findings/Remarks: PATIENT DISCHARGED HOME PER HIS REQUEST WITH HOME HEALTH AID Labs: CBC, BMP 08/13/19 07:01 08/10/19 07:34 Discharge Summary Problems reviewed: Yes Reason For Visit: ANEMIA TACHYCARDIA Current Active Problems Anemia (Acute) Occult blood in stools (Acute) Tachycardia (Acute) Procedures: Principal: EGD Hospital Course: ADMITTED FOR GI BLEED ON ASA POST KNEE SURGERY EGD SHOWS IRRITATION/NON-BLEEDING ULCERS GI STOP ASA AND NSAIDS GIVEN TRANSFUSION AND IRON IV Plan of Treatment: STOP ASPIRIN THERAPY Condition: Stable - Instructions Diet, Activity, Other Instructions: SEE DR BARKLEY IN 1 WEEK FOR LABS HOME PT AND BIRDCAGE ASSEMBLER ORTHOPEDIC FOLLOW UP Disposition: VNS/HOME HEALTH CARE - Home Medications Comprehensive Discharge Medication List: Ambulatory Orders Lisinopril 5 mg PO DAILY 07/23/19 Methimazole 5 mg PO BID 07/23/19 Metoprolol Succinate [Toprol Xl] 50 mg PO DAILY 07/23/19 Simvastatin 10 mg PO DAILY 07/23/19 Tamsulosin HCl 0.4 mg PO DAILY 07/23/19 oxyCODONE HCL [Roxicodone -] 5 mg PO Q6H PRN tablet MDD 8 08/03/19 Prescription Drug Monitoring Program (I-STOP) results: I-STOP not reviewed
--- NOTE | 2019-08-13 08:58 | PN ---
Progress Note (short form) - Note Progress Note: Ortho Pt seen and examined 2 weeks s/p right randy tkr. Selected Entries 08/13/19 06:00 Temperature 97.9 F Pulse Rate 77 Respiratory 17 Rate Blood Pressure 120/79 Laboratory Tests 08/13/19 07:01 WBC 7.7 Hgb 9.3 L Hct 27.9 L Plt Count 680 H incision healing well, minimal swelling, minimal ttp, rom 0-120 calf soft, nt, nvi a/p PT dvt ppx pain control med f/u, d/c once cleared
[2019-08-13 09:33] LABS: RETICULOCYTES 3.27 % (0.5-1.5)
[2019-08-13] MEDS: METHIMAZOLE 5 MG TABLET (FP) PO SCH (09:45)
[2019-08-13] MEDS: PANTOPRAZOLE SODIUM 40 MG VIAL IVPUSH SCH (09:45)
[2019-08-13] MEDS: TAMSULOSIN HCL 0.4 MG CAP PO SCH (09:45)
[2019-08-13 14:34] VITALS: BP 111/66; PULSE 79; TEMP 98.9
--- NOTE | 2019-08-13 16:56 | CONSULT ---
Consult Consult Specialty:: heme Referred by:: dr noble Reason for Consultation:: thrombocytosis - History of Present Illness Chief Complaint: 69 yom post-op recent. R knee surg adm from rehab w anemia; t- cytosis noted as well - History Source History Provided By: Patient, Medical Record - Past Medical History Cardio/Vascular: Yes: CAD (s/p stenting), HTN, Hyperlipdemia, [place] Gastrointestinal: Yes: Cancer (colon) Renal/: Yes: Cancer (prostate), Renal Calculi Endocrine: Yes: Diabetes Mellitus - Alcohol/Substance Use Hx Alcohol Use: Yes (7 BEER/DAY,OR COUPLE OF DRINKS) - Smoking History Smoking history: Current every day smoker Have you smoked in the past 12 months: Yes Aproximately how many cigarettes per day: 6 Home Medications - Allergies Allergies/Adverse Reactions: Allergies Allergy/AdvReac Type Severity Reaction Status Date / Time Penicillins Allergy Intermediate Rash Verified 08/08/19 17:00 - Home Medications Home Medications: Ambulatory Orders Lisinopril 5 mg PO DAILY 07/23/19 Methimazole 5 mg PO BID 07/23/19 Metoprolol Succinate [Toprol Xl] 50 mg PO DAILY 07/23/19 Simvastatin 10 mg PO DAILY 07/23/19 Tamsulosin HCl 0.4 mg PO DAILY 07/23/19 oxyCODONE HCL [Roxicodone -] 5 mg PO Q6H PRN tablet MDD 8 08/03/19 Physical Exam Vital Signs: Vital Signs Temperature 98.9 F 08/13/19 14:00 Pulse Rate 79 08/13/19 14:00 Respiratory Rate 18 08/13/19 14:00 Blood Pressure 111/66 08/13/19 14:00 O2 Sat by Pulse Oximetry (%) 100 08/13/19 14:00 Constitutional: Yes: Well Nourished, No Distress Eyes: Yes: Conjunctiva Clear HENT: Yes: WNL Respiratory: Yes: CTA Bilaterally Gastrointestinal: Yes: Normal Bowel Sounds ...Rectal Exam: Yes: Deferred Musculoskeletal: Yes: WNL Extremities: Yes: Other (healing RLE incisiion) Edema: No Labs: CBC, BMP 08/13/19 07:01 08/10/19 07:34 Assessment/Plan severe PEDRO w assoc thrombocytosis, guaiac pos prior and recent CBCs do not evid elev plt count bleeding sources noted on egd he has recd transfusion and IV iron w subsequent lab mprovement pt to f/u in office, [place] if found to have persistent t-cytosis despite sufficient iron repletion f/u w GI; note remote h/o crc
--- NOTE | 2019-08-14 14:36 | PATH ---
Surgical Pathology Report Patient Name: MATT BLANCO Med. Rec. #: [id number] /Age/Gender: 1950 (Age: 69) / M Account: [id number] Location: [facility] Taken: 08/09/2019 Received: 08/09/2019 Reported: 08/14/2019 Physicians: Dana Hodge M.D. Specimen(s) Received BX GASTRIC ANTRUM Clinical History Anemia, GI bleed Postoperative diagnosis: Gastric ulcer, angiodysplasia Final Diagnosis GASTRIC ANTRUM, BIOPSY: MILD CHRONIC ACTIVE GASTRITIS WITH FEATURES OF REACTIVE GASTROPATHY. IMMUNOSTAIN IS NEGATIVE FOR H. PYLORI ORGANISMS. Electronically Signed Mayra Crum M.D. Gross Description Received in formalin, labeled "biopsy gastric antrum" is a cody, irregular portion of soft tissue measuring 0.3 cm. in greatest dimension. The specimen is submitted in toto in one cassette. 08/10/2019 [facility]08/10/2019
== END 2019-08-13 16:10 | disposition home health service (06) | DRG 377 ==
LOC: FER 11:56 → FM/S 17:46
PROVIDERS: ADMIT Family Medicine; ATTEND Family Medicine
PROC: 30233N1 Transfusion of Nonautologous Red Blood Cells into Peripheral Vein, Percutaneous Approach (ICD-10-PCS; 2019-08-08)
PROC: 0DB68ZX Excision of Stomach, Via Natural or Artificial Opening Endoscopic, Diagnostic (ICD-10-PCS; 2019-08-09)
PROC: 0W3P8ZZ Control Bleeding in Gastrointestinal Tract, Via Natural or Artificial Opening Endoscopic (ICD-10-PCS; 2019-08-09)
PROC: 0DB98ZX Excision of Duodenum, Via Natural or Artificial Opening Endoscopic, Diagnostic (ICD-10-PCS; principal; 2019-08-09 09:56)
DX: K31.82 Dieulafoy lesion (hemorrhagic) of stomach and duodenum (principal); K31.811 Angiodysplasia of stomach and duodenum with bleeding; D62 Acute posthemorrhagic anemia; I10 Essential (primary) hypertension; K25.9 Gastric ulcer, unspecified as acute or chronic, without hemorrhage or perforation; E78.5 Hyperlipidemia, unspecified; E05.90 Thyrotoxicosis, unspecified without thyrotoxic crisis or storm; I25.10 Atherosclerotic heart disease of native coronary artery without angina pectoris; I25.2 Old myocardial infarction; R19.5 Other fecal abnormalities; E11.9 Type 2 diabetes mellitus without complications; K29.70 Gastritis, unspecified, without bleeding; Z85.46 Personal history of malignant neoplasm of prostate; Z95.5 Presence of coronary angioplasty implant and graft; Z85.038 Personal history of other malignant neoplasm of large intestine; Z96.651 Presence of right artificial knee joint
CPT/HCPCS: 36415; 36430; 71045-TC-FY; 80053; 80061; 82272; 82550; 82553; 82728; 83010; 83540; 83550; 83615; 84443; 84484; 85025; 85027; 85044; 85610; 85730; 86850; 86900; 86901; 86922; 88305-TC; 97116-GP; 97163-GP; 99284-25; J0131; J1756; P9038; P9058

== ENCOUNTER 2019-09-22 23:48 | Inpatient (IN) | payer OTHER ==
--- NOTE | 2019-09-23 00:45 | PDOC ---
Attending Attestation - Resident Resident Name: Demar Ochoa - ED Attending Attestation I have performed the following: I have examined & evaluated the patient, The case was reviewed & discussed with the resident, I agree w/resident's findings & plan - HPI HPI: 09/23/19 01:53 Pt comes with knee pain. - Physicial Exam PE: 09/23/19 04:22 Pt is intoxicated, but he is able to answer questions and follow commands. Afebrile VSS heart and lungs normal abd soft NT ND no flank pain right knee swollen and warm; no erythema - Medical Decision Making 09/23/19 04:24 Pt placed in a knee immobilizer for the distal spiral fracture of his femur. 09/23/19 06:55 Pt will be admitted for ortho eval; ortho was calld and they are aware. Heart Score/ECG Review - ECG Intrepretation Rhythm: Regular Rhythm - Jeddo Jeddo: Normal - P and IL Delta Wave(s) Present: No WPW: No - QRS Q Wave Present: No - ST and T Early Repolarization: No Non Specific ST-T Wave changes: No - ECG Impressions Normal ECG: Yes Non-specific ST Elevation: Yes Ischemic Changes: No Torsades ankit Pointes: No WPW: No Comment:: 09/23/19 01:54 same as old EKG
--- NOTE | 2019-09-23 00:48 | PDOC ---
History of Present Illness - General Stated Complaint: FALL Time Seen by Provider: 09/23/19 00:45 History Source: Patient Exam Limitations: No Limitations - History of Present Illness Initial Comments: 09/23/19 01:05 69 yo M with a hx of CAD s/p stent and FL, HTN, HLD, colon CA, prostate CA, DM, arthritis with TKR on the right side, anemia with thrombocytosis, and hyperthyroidism presents to the emergency department with right knee pain that has been ongoing for 2-3 days. Per the patient, he drank 1 quart of rum tonight with multiple beers. He said he has been unable to walk and has increasing pain in his right knee. Denies innoculations into the knee joint and denies trauma. Per the patient, he also denies a hx of gout. He describes the pain as sharp, non radiating, worsens with movement. Denies the following: fever, chills, SOB, chest pain, abdominal pain, dysuria, hematuria, diarrhea, and hematochezia. Allergies: PCN Past History - Past Medical History Allergies/Adverse Reactions: Allergies Allergy/AdvReac Type Severity Reaction Status Date / Time Penicillins Allergy Intermediate Rash Verified 09/23/19 01:10 Home Medications: Ambulatory Orders Lisinopril 5 mg PO DAILY 07/23/19 Methimazole 5 mg PO BID 07/23/19 Metoprolol Succinate [Toprol Xl] 50 mg PO DAILY 07/23/19 Simvastatin 10 mg PO DAILY 07/23/19 Tamsulosin HCl 0.4 mg PO DAILY 07/23/19 Enoxaparin [Lovenox -] 40 mg SQ DAILY disp.syrin 09/25/19 Enoxaparin [Lovenox -] 40 mg SQ DAILY disp.syrin 09/25/19 Folic Acid - 1 mg PO DAILY tablet 09/25/19 Folic Acid - 1 mg PO DAILY tablet 09/25/19 Insulin Sliding Scale [Novolog Vial Sliding Scale -] 1 vial SQ ACHS units 09/25 Insulin Sliding Scale [Novolog Vial Sliding Scale -] 1 vial SQ ACHS units 09/25 Iron Polysaccharides [Niferex-150 -] 150 mg PO DAILY capsule 09/25/19 Multivitamins [Multivit ([facility])] 1 tab PO DAILY tab 09/25/19 Multivitamins [Multivit ([facility])] 1 tab PO DAILY tab 09/25/19 Pantoprazole Sodium [Protonix -] 40 mg PO DAILY tablet.ec 09/25/19 Thiamine HCl [Vitamin B1 -] 100 mg PO DAILY tablet 09/25/19 Thiamine HCl [Vitamin B1 -] 100 mg PO DAILY tablet 09/25/19 oxyCODONE HCL [Roxicodone -] 5 mg PO Q4H PRN #180 tablet MDD 6 09/25/19 Anemia: No Asthma: No Cancer: Yes (PROSTATE,COLON) Cardiac Disorders: No CVA: No COPD: No CHF: No Dementia: No Diabetes: No GI Disorders: No Disorders: Yes (KIDNEY STONES) HTN: Yes Hypercholesterolemia: Yes Liver Disease: Yes (INFLAMMATION) Seizures: No Thyroid Disease: Yes (HYPERACTIVE THYROID) - Surgical History Abdominal Surgery: Yes (COLON RESECTION 1994,CHEMO,HERNIA REPAIR) Appendectomy: No Cardiac Surgery: No Cholecystectomy: No Lung Surgery: No Neurologic Surgery: No Orthopedic Surgery: Yes (S/P RTKR a wk ago) - Psycho Social/Smoking Cessation Hx Smoking History: Current every day smoker Have you smoked in the past 12 months: Yes Number of Cigarettes Smoked Daily: 6 Hx Alcohol Use: Yes (7 BEER/DAY,OR COUPLE OF DRINKS) Drug/Substance Use Hx: No Substance Use Type: Alcohol Hx Substance Use Treatment: No Review of Systems - Review of Systems Able to Perform ROS?: Yes Is the patient limited Latvian proficient: No Constitutional: No: Chills, Diaphoresis, Fever, Weakness HEENTM: No: Eye Pain, Ear Pain, Nose Pain, Throat Pain, Mouth Pain Respiratory: No: Cough, Shortness of Breath, Hemoptysis Cardiac (ROS): No: Chest Pain, Lightheadedness, Syncope, Chest Tightness ABD/GI: No: Constipated, Diarrhea, Nausea, Rectal Bleeding, Vomiting, Tarry Stools : No: Burning, Dysuria, Hematuria Musculoskeletal: Yes: Joint Pain (right knee). No: Back Pain, Gout, Neck Pain Integumentary: No: Bruising, Erythema, Rash Neurological: No: Headache, Tingling, Ataxia Psychiatric: No: Change in Appetite Endocrine: No: Unexplained Weight Loss Hematologic/Lymphatic: Yes: Anemia *Physical Exam - Physical Exam General Appearance: Yes: Nourished, Appropriately Dressed, Alcohol on Breath, Intoxicated, Obese. No: Apparent Distress HEENT: positive: EOMI, ROSA, Normal Voice, Symmetrical, Pharynx Normal, Hearing Grossly Normal. negative: Pale Conjunctivae, Scleral Icterus (R), Scleral Icterus (L), Muffled/Hoarse voice, Pharyngeal Erythema, Tonsillar Exudate, Tonsillar Erythema, Nasal Congestion, Rhinorrhea, Sinus Tenderness, Excessive drooling Neck: positive: Trachea midline, Supple. negative: Tender, Lymphadenopathy (R) , Lymphadenopathy (L) Respiratory/Chest: positive: Lungs Clear, Normal Breath Sounds. negative: Chest Tender, Respiratory Distress, Accessory Muscle Use, Crackles, Rales, Rhonchi, Stridor, Wheezing Cardiovascular: positive: Regular Rhythm, Regular Rate, S1, S2. negative: Systolic Murmur Gastrointestinal/Abdominal: positive: Normal Bowel Sounds, Flat, Soft. negative : Tender, Distended, Guarding, Rebound Lymphatic: negative: Adenopathy Musculoskeletal: positive: Normal Inspection. negative: CVA Tenderness, Vertebral Tenderness Extremity: positive: Normal Capillary Refill, Other (DP and PT pulses intact strong pulse bilaterally. swelling noted of the right knee and warm to the touch with limited ROM due to pain with surgical scar noted.). negative: Calf Tenderness Integumentary: positive: Normal Color, Dry, Warm Neurologic: positive: Fully Oriented, Alert, Normal Mood/Affect ED Treatment Course - LABORATORY CBC & Chemistry Diagram: 09/26/19 07:50 09/26/19 07:50 Medical Decision Making - Medical Decision Making 09/23/19 01:57 69 yo M with a hx of CAD s/p stent and FL, HTN, HLD, colon CA, prostate CA, DM, arthritis with TKR on the right side, anemia with thrombocytosis, and hyperthyroidism presents to the emergency department with right knee pain that has been ongoing for 2-3 days. Initial vitals: Initial Vital Signs Temp Pulse Resp BP Pulse Ox 97.7 F 91 H 18 126/91 100 09/23/19 00:45 09/23/19 00:45 09/23/19 00:45 09/23/19 00:45 09/23/19 00:45 Work up: ddx: septic arthritis (unlikely given that the patient is afebrile) vs gout vs distal femur fracture vs tibial plateau fracture Will obtain labs and imaging in the knee Laboratory Tests 09/23/19 09/23/19 09/23/19 01:25 01:25 01:25 WBC 8.0 RBC 4.36 Hgb 12.7 Hct 38.9 MCV 89.2 MCH 29.1 MCHC 32.6 RDW 18.0 H Plt Count 278 MPV 7.4 L Absolute Neuts (auto) 6.4 Neutrophils % 79.2 Lymphocytes % 14.8 Monocytes % 5.5 Eosinophils % 0.3 Basophils % 0.2 Nucleated RBC % 0 PT with INR INR Sodium 133 L Potassium 3.8 Chloride 100 Carbon Dioxide 23 Anion Gap 10 BUN 7.5 Creatinine 1.0 Est GFR (CKD-EPI)AfAm 88.61 Est GFR (CKD-EPI)NonAf 76.45 Random Glucose 109 H Uric Acid 6.8 Calcium 9.4 Magnesium 1.9 Total Bilirubin 0.4 AST 23 ALT 21 Alkaline Phosphatase 98 Creatine Kinase 228 Creatine Kinase Index 0.5 CK-MB (CK-2) 1.2 Troponin I < 0.02 Total Protein 7.7 Albumin 3.8 Alcohol, Quantitative 293.7 H 09/23/19 01:25 WBC RBC Hgb Hct MCV MCH MCHC RDW Plt Count MPV Absolute Neuts (auto) Neutrophils % Lymphocytes % Monocytes % Eosinophils % Basophils % Nucleated RBC % PT with INR 13.00 INR 1.10 H Sodium Potassium Chloride Carbon Dioxide Anion Gap BUN Creatinine Est GFR (CKD-EPI)AfAm Est GFR (CKD-EPI)NonAf Random Glucose Uric Acid Calcium Magnesium Total Bilirubin AST ALT Alkaline Phosphatase Creatine Kinase Creatine Kinase Index CK-MB (CK-2) Troponin I Total Protein Albumin Alcohol, Quantitative alcohol elevated patient's xray shows a distal femur fracture with displacement to the posterior. DP and PT pulses are intact bilaterally without deficit. Dr. Grace's service was called and they advised for splinting the leg in a leg brace and will be followed in the morning Patient was endorsed to the hospitalist service and accepted for admission Dispo: Admit 09/23/19 04:23 Discharge - Discharge Information Problems reviewed: Yes Clinical Impression/Diagnosis: Femur fracture Condition: Stable Disposition: [facility] - Follow up/Referral - Patient Discharge Instructions - Post Discharge Activity
[2019-09-23] MEDS ORDERED: ACETAMINOPHEN 1000 MG/100 ML VIAL (NON FORMULARY) IVPB ONE (01:01)
[2019-09-23 01:44] LABS: BASO % 0.2 % (0-2.0); EOS % 0.3 % (0-4.5); HEMATOCRIT 38.9 % (35.4-49); HEMOGLOBIN 12.7 GM/dL (11.7-16.9); LYMPH % 14.8 % (8-40); MCH 29.1 pg (25.7-33.7); MCHC 32.6 g/dl (32.0-35.9); MEAN CELL VOLUME 89.2 fl (80-96); MEAN PLT VOLUME 7.4 fl (7.5-11.1); MONO % 5.5 % (3.8-10.2); NEUT % 79.2 % (42.8-82.8); PLATELET COUNT 278 K/MM3 (134-434); RBC 4.36 M/mm3 (4.00-5.60)
[2019-09-23 01:50] LABS: INR 1.1 (0.83-1.09)
[2019-09-23 02:02] LABS: ALBUMIN 3.8 g/dl (3.4-5.0); ALK PHOS 98 U/L (45-117); ANION GAP 10 MMOL/L (8-16); BILIRUBIN,TOTAL 0.4 mg/dL (0.2-1); BLOOD UREA NITROGEN 7.5 mg/dL (7-18); CALCIUM 9.4 mg/dL (8.5-10.1); CHLORIDE 100 mmol/L (98-107); CO2 23 mmol/L (21-32); GLUCOSE,RANDOM 109 mg/dL (74-106); MAGNESIUM 1.9 mg/dL (1.8-2.4); POTASSIUM 3.8 mmol/L (3.5-5.1); SGOT/AST 23 U/L (15-37); SGPT/ALT 21 U/L (13-61); SODIUM 133 mmol/L (136-145); TOT PROT 7.7 g/dl (6.4-8.2)
[2019-09-23] MEDS ORDERED: ACETAMINOPHEN INJECTION 100 ML IVPB ONE (02:09)
[2019-09-23 02:23] LABS: URIC ACID 6.8 mg/dL (2.6-7.2)
[2019-09-23] MEDS ORDERED: FOLIC ACID INJECTION - 1 MG, THIAMINE HCL 100 MG, MULTIVIT INJECTION ADULT 10 ML in SOD... IVPB ONE (02:53)
--- NOTE | 2019-09-23 03:12 | HP ---
Admitting History and Physical - Primary Care Physician PCP: Lynsey Wilson - Admission Chief Complaint: Right Knee Pain History of Present Illness: This is a 69 y/o man with a significant medical history of CAD (?stent, patient denies), RI, HTN, HLD, DM, anemia ( Thrombocytosis), Hyperthyroidism, Arthritis s/p right TKR (07/2019), Colon Ca (s/p colon resection), Prostate Ca (s/p penile pump). Who presents to the ED via ambulance with right knee pain and swelling. Patient reported in the beginning that he did not recall how he injured his right knee, later he reports that he fell down at home. He denies head trauma or LOC. He admits to drinking a quart of Rum and multiple beers last night. He reports drinking alcohol daily. Patient denies fever, chills, cough, SOB, dizziness, headache, CP, palpitations, AP, N/V/D, constipation, hematochezia, melena, hematuria, dysuria. History Source: Patient, Medical Record Limitations to Obtaining History: Clinical Condition, Intoxication, Poor Historian - Past Medical History Cardiovascular: Yes: CAD (s/p stenting), HTN, Hyperlipdemia, RI Gastrointestinal: Yes: Cancer (colon) Renal/: Yes: Cancer (prostate), Renal Calculi Endocrine: Yes: Diabetes Mellitus, Hyperthyroidism - Past Surgical History Past Surgical History: Yes: Joint Replacement (Right) Additional Past Surgical History: Colon Resection Prostate - Smoking History Smoking history: Current every day smoker Have you smoked in the past 12 months: Yes Aproximately how many cigarettes per day: 6 - Alcohol/Substance Use Hx Alcohol Use: Yes (7 BEER/DAY, QUART OF RUM,OR COUPLE OF DRINKS) History of Substance Use: reports: None - Social History Usual Living Arrangement: Yes: Alone Do you think of yourself as: Straight/Heterosexual ADL: Independent History of Recent Travel: No Home Medications - Allergies Allergies/Adverse Reactions: Allergies Allergy/AdvReac Type Severity Reaction Status Date / Time Penicillins Allergy Intermediate Rash Verified 09/23/19 01:10 - Home Medications Home Medications: Ambulatory Orders Lisinopril 5 mg PO DAILY 07/23/19 Methimazole 5 mg PO BID 07/23/19 Metoprolol Succinate [Toprol Xl] 50 mg PO DAILY 07/23/19 Simvastatin 10 mg PO DAILY 07/23/19 Tamsulosin HCl 0.4 mg PO DAILY 07/23/19 Ferrous Gluconate [Fergon -] 324 mg PO DAILY 09/23/19 Omeprazole 40 mg PO DAILY 09/23/19 Tramadol HCl 50 mg PO TID 09/23/19 Family Medical History Family History: Unable to Obtain Review of Systems - Review of Systems Constitutional: reports: No Symptoms Eyes: reports: No Symptoms HENT: reports: No Symptoms Neck: reports: No Symptoms Cardiovascular: reports: No Symptoms Respiratory: reports: No Symptoms Gastrointestinal: reports: No Symptoms Genitourinary: reports: No Symptoms Breasts: reports: No Symptoms Reported Musculoskeletal: reports: Extremity Pain, Joint Pain, Joint Swelling Integumentary: reports: No Symptoms Neurological: reports: No Symptoms Endocrine: reports: No Symptoms Hematology/Lymphatic: reports: No Symptoms Psychiatric: reports: No Symptoms Pain Intensity: 9 Physical Examination Vital Signs: Vital Signs Temperature 97.7 F 09/23/19 00:45 Pulse Rate 91 H 09/23/19 00:45 Respiratory Rate 18 09/23/19 00:45 Blood Pressure 126/91 09/23/19 00:45 O2 Sat by Pulse Oximetry (%) 100 09/23/19 00:45 Constitutional: Yes: Well Nourished, Mild Distress, Obese Eyes: Yes: Conjunctiva Clear (injected), EOM Intact, PERRL HENT: Yes: WNL, Atraumatic, Normocephalic Neck: Yes: WNL, Supple, Trachea Midline Cardiovascular: Yes: Regular Rate and Rhythm, S1, S2 Respiratory: Yes: WNL, Regular, CTA Bilaterally Gastrointestinal: Yes: WNL, Normal Bowel Sounds, Soft, Abdomen, Obese ...Rectal Exam: Yes: Deferred Renal/: Yes: WNL Musculoskeletal: Yes: Joint Swelling Extremities: Yes: Deformity Edema: No Peripheral Pulses WNL: Yes Integumentary: Yes: Erythema Neurological: Yes: Alert, Oriented, Cran Nerves II-XII Intact ...Motor Strength: LUE (5/5), LLE (5/5), RUE (5/5) Psychiatric: Yes: WNL, Alert, Oriented Labs: CBC, BMP 09/23/19 01:25 09/23/19 01:25 Laboratory Results - last 24 hr 01/09/23/19 09/23/19 01:25 01:25 01:25 WBC 8.0 RBC 4.36 Hgb 12.7 Hct 38.9 MCV 89.2 MCH 29.1 MCHC 32.6 RDW 18.0 H Plt Count 278 MPV 7.4 L Absolute Neuts (auto) 6.4 Neutrophils % 79.2 Lymphocytes % 14.8 Monocytes % 5.5 Eosinophils % 0.3 Basophils % 0.2 Nucleated RBC % 0 PT with INR INR Sodium 133 L Potassium 3.8 Chloride 100 Carbon Dioxide 23 Anion Gap 10 BUN 7.5 Creatinine 1.0 Est GFR (CKD-EPI)AfAm 88.61 Est GFR (CKD-EPI)NonAf 76.45 Random Glucose 109 H Uric Acid 6.8 Calcium 9.4 Magnesium 1.9 Total Bilirubin 0.4 AST 23 ALT 21 Alkaline Phosphatase 98 Creatine Kinase 228 Creatine Kinase Index 0.5 CK-MB (CK-2) 1.2 Troponin I < 0.02 Total Protein 7.7 Albumin 3.8 Alcohol, Quantitative 293.7 H 09/23/19 01:25 WBC RBC Hgb Hct MCV MCH MCHC RDW Plt Count MPV Absolute Neuts (auto) Neutrophils % Lymphocytes % Monocytes % Eosinophils % Basophils % Nucleated RBC % PT with INR 13.00 INR 1.10 H Sodium Potassium Chloride Carbon Dioxide Anion Gap BUN Creatinine Est GFR (CKD-EPI)AfAm Est GFR (CKD-EPI)NonAf Random Glucose Uric Acid Calcium Magnesium Total Bilirubin AST ALT Alkaline Phosphatase Creatine Kinase Creatine Kinase Index CK-MB (CK-2) Troponin I Total Protein Albumin Alcohol, Quantitative Intake & Output 09/20/19 09/21/19 09/22/19 09/23/19 23:59 23:59 23:59 23:59 Weight 96.207 kg Current Medications Generic Name Dose Route Start Last Admin Trade Name Freq PRN Reason Stop Dose Admin Folic Acid 1 mg/ Thiamine HCl 1,000 mls @ 125 mls/hr 09/23/19 02:53 09/23/19 04:05 100 mg/ Multivitamins/Minerals IVPB 09/23/19 10:52 125 mls/hr 10 ml/ Sodium Chloride ONCE ONE Administration Dextrose/Sodium Chloride 1,000 mls @ 75 mls/hr 09/23/19 03:15 D5-1/2ns - IV ASDIR REJI Lorazepam 2 mg 09/23/19 12:00 Ativan Injection - IVPUSH Q6H PRN WITHDRAWAL(CONT SUBST) Morphine Sulfate 4 mg 09/23/19 12:00 Morphine Sulfate IVPUSH Q4H PRN PAIN LEVEL 6-10 Pneumococcal 13-Valent Conj Vacc 0.5 ml 09/23/19 10:00 Prevnar 13 Syringe - IM 09/23/19 10:01 .ONCE ONE Imaging - Results X-ray: Report Reviewed, Image Reviewed EKG: Image Reviewed Problem List - Problems (1) Femur fracture Code(s): S72.90XA - UNSP FRACTURE OF UNSP FEMUR, INIT ENCNTR FOR CLOSED FRACTURE (2) Alcohol abuse with intoxication Code(s): F10.129 - ALCOHOL ABUSE WITH INTOXICATION, UNSPECIFIED (3) Anemia Code(s): D64.9 - ANEMIA, UNSPECIFIED (4) HTN (hypertension) Code(s): I10 - ESSENTIAL (PRIMARY) HYPERTENSION (5) HLD (hyperlipidemia) Code(s): E78.5 - HYPERLIPIDEMIA, UNSPECIFIED (6) Diabetes mellitus Code(s): E11.9 - TYPE 2 DIABETES MELLITUS WITHOUT COMPLICATIONS (7) History of colon cancer Code(s): Z85.038 - PERSONAL HISTORY OF MALIGNANT NEOPLASM OF LARGE INTESTINE (8) Hyperthyroidism Code(s): E05.90 - THYROTOXICOSIS, UNSP WITHOUT THYROTOXIC CRISIS OR STORM (9) S/P knee replacement Code(s): Z96.659 - PRESENCE OF UNSPECIFIED ARTIFICIAL KNEE JOINT (10) BPH (benign prostatic hyperplasia) Code(s): N40.0 - BENIGN PROSTATIC HYPERPLASIA WITHOUT LOWER URINRY TRACT SYMP Assessment/Plan This is a 69 y/o man admitted to [facility] for Right Femur Fx, Alcohol Abuse with Intoxication for further evaluation of their emergent condition. Plan: #Femur Fracture Likely due to fall from Alcohol Intoxication Xray- Distal femur Fx displacement to the posteriorly Ortho consulted by ED resident Knee Immbolizer Elevate Neurovascular checks Bedrest NPO IVF Morphine Sulfate prn, use judiciously secondary to ETOH 293 # Alcohol Abuse with Intoxication ETOH 293 CIWA-Ar 1 Counseled on Alcohol Cessation Appreciate Detox Consult Monitor for DTs Ativan prn Banana Bag initiated in ED # Hypertension stable Monitor BP Continue home meds Monitor renal function # CAD EKG- reviewed chest Xray image- no infiltrate no effusion Continue home meds # Diabetes Mellitus stable BGMs Hold ISS until diet resumed #BPH stable Continue home med FEN D50.45%NS@75ml/hr Replete lytes prn NPO DVT ppx SCDs Heparin SQ Code Status: Full Code Dispo: Requires Inpatient Care Visit type - Emergency Visit Emergency Visit: Yes ED Registration Date: 09/23/19 Care time: The patient presented to the Emergency Department on the above date and was hospitalized for further evaluation of their emergent condition. - New Patient This patient is new to me today: Yes Date on this admission: 09/23/19 - Critical Care Critical Care patient: No
[2019-09-23] MEDS ORDERED: DEXTROSE 5%-0.45% SALINE 1,000 ML IV SCH (03:15)
[2019-09-23] MEDS ORDERED: morphine CARPU-JECT 4 MG/1 ML DISP.SYRIN IVPUSH ONE (03:21)
[2019-09-23] MEDS ORDERED: morphine SULFATE 4 MG/ML VIAL ONE (04:11)
[2019-09-23 05:25] VITALS: BMI 31.3
[2019-09-23] MEDS ORDERED: morphine SULFATE 4 MG/ML VIAL IVPUSH ONE (07:59)
[2019-09-23] MEDS: TAMSULOSIN HCL 0.4 MG CAP PO SCH (09:59)
[2019-09-23] MEDS: LISINOPRIL 5 MG TABLET (FP) PO SCH (09:59)
[2019-09-23] MEDS ORDERED: PNEUMOC 13-VAL CONJ-DIP CRM/PF 0.5 ML DISP.SYRIN IM ONE (10:00)
[2019-09-23] MEDS: METHIMAZOLE 5 MG TABLET (FP) PO SCH ×2 (10:01→21:49)
--- NOTE | 2019-09-23 10:30 | PN ---
Progress Note, Physician Chief Complaint: R knee pain Femur Fracture ETOH Abuse History of Present Illness: Previous notes and events reviewed awake and alert NAD complain of pain to R thigh RLE in immobilizer denies chest pain or sob - Current Medication List Current Medications: Active Medications Atorvastatin Calcium (Lipitor -) 10 mg PO [facility] Folic Acid 1 mg/ Thiamine HCl 100 mg/ Multivitamins/Minerals 10 ml/ Sodium Chloride 1,000 mls @ 125 mls/hr IVPB ONCE ONE Stop: 09/23/19 10:52 Last Admin: 09/23/19 04:05 Dose: 125 mls/hr Dextrose/Sodium Chloride (D5-1/2ns -) 1,000 mls @ 75 mls/hr IV ASDIR [facility] Lisinopril (Prinivil) 5 mg PO DAILY [facility] Last Admin: 09/23/19 09:59 Dose: 5 mg Lorazepam (Ativan Injection -) 2 mg IVPUSH Q6H PRN PRN Reason: WITHDRAWAL(CONT SUBST) Methimazole (Tapazole -) 5 mg PO BID [facility] Last Admin: 09/23/19 10:01 Dose: 5 mg Metoprolol Succinate (Toprol Xl -) 50 mg PO DAILY [facility] Last Admin: 09/23/19 09:59 Dose: 50 mg Morphine Sulfate (Morphine Sulfate) 4 mg IVPUSH Q4H PRN PRN Reason: PAIN LEVEL 6-10 Tamsulosin HCl (Flomax -) 0.4 mg PO DAILY@0830 [facility] Last Admin: 09/23/19 09:59 Dose: 0.4 mg - Objective Vital Signs: Vital Signs Temperature 97.9 F 09/23/19 06:00 Pulse Rate 68 09/23/19 06:00 Respiratory Rate 18 09/23/19 06:00 Blood Pressure 130/74 09/23/19 06:00 O2 Sat by Pulse Oximetry (%) 98 09/23/19 04:59 Constitutional: Yes: No Distress, Calm Eyes: Yes: Conjunctiva Clear HENT: Yes: Atraumatic Cardiovascular: Yes: Regular Rate and Rhythm Respiratory: Yes: Regular, CTA Bilaterally Gastrointestinal: Yes: Normal Bowel Sounds, Soft Musculoskeletal: Yes: Muscle Weakness Extremities: Yes: Other (r knee edema, rle immobilizer) Neurological: Yes: Alert, Oriented Psychiatric: Yes: Alert, Oriented Labs: CBC, BMP 09/23/19 01:25 09/23/19 01:25 INR, PTT INR 1.10 (0.83-1.09) H 09/23/19 01:25 Problem List - Problems (1) Alcohol abuse with intoxication Assessment/Plan: -Dr [place] consult -Received banana bag in ER -Ativan prn for agitation/withdrawal -Thiamine, MVI, Folic Acid -fall precaution -seiuzure precaution Code(s): F10.129 - ALCOHOL ABUSE WITH INTOXICATION, UNSPECIFIED (2) BPH (benign prostatic hyperplasia) Assessment/Plan: -Tamsulosin Code(s): N40.0 - BENIGN PROSTATIC HYPERPLASIA WITHOUT LOWER URINRY TRACT SYMP (3) Diabetes mellitus Assessment/Plan: -BGM ACHS -ISS -HgA1c -diabetic/low Na diet Code(s): E11.9 - TYPE 2 DIABETES MELLITUS WITHOUT COMPLICATIONS (4) Femur fracture Assessment/Plan: -R Knee Xray shows acute spiral oblique fracture extending for a length of at least 6cm with the distal fracture line extending to the level of the superior margin of the femoral prosthesis -Orthopedic consult -NPO after midnight for surgery -IV hydration -pain control Code(s): S72.90XA - UNSP FRACTURE OF UNSP FEMUR, INIT ENCNTR FOR CLOSED FRACTURE (5) HLD (hyperlipidemia) Assessment/Plan: -Atorvastatin Code(s): E78.5 - HYPERLIPIDEMIA, UNSPECIFIED (6) HTN (hypertension) Assessment/Plan: -Lisinopril -low Na diet Code(s): I10 - ESSENTIAL (PRIMARY) HYPERTENSION (7) Hyperthyroidism Assessment/Plan: -Methimazole -TSH/T4 ordered Code(s): E05.90 - THYROTOXICOSIS, UNSP WITHOUT THYROTOXIC CRISIS OR STORM Assessment/Plan see problem list dvt ppx
[2019-09-23] MEDS ORDERED: LORazepam 2 MG/ML SDV VIAL IVPUSH PRN (12:00)
--- NOTE | 2019-09-23 12:23 | EKG ---
Test Reason : Blood Pressure : / mmHG Vent. Rate : 091 BPM Atrial Rate : 091 BPM P-R Int : 172 ms QRS Dur : 118 ms QT Int : 368 ms P-R-T Axes : 072 -10 071 degrees QTc Int : 452 ms NORMAL SINUS RHYTHM NON-SPECIFIC INTRA-VENTRICULAR CONDUCTION DELAY WHEN COMPARED WITH ECG OF 01-AUG-2019 08:25, QRS DURATION HAS INCREASED Confirmed by TIFFANY DRISCOLL MD ([id number]) on 09/23/2019 12:23:23 PM Referred By: Confirmed By:TIFFANY DRISCOLL MD
--- NOTE | 2019-09-23 14:25 | CON.CARD ---
Consult Consult Specialty:: Cardiology Reason for Consultation:: Pre-Op Eval - History of Present Illness Chief Complaint: Right leg pain History of Present Illness: This is a 69 year old male with a PMH of HTN, HLD, DM, heavy ETOH use, anemia ( Thrombocytosis), Hyperthyroidism, Arthritis s/p right TKR (07/2019), Colon Ca (s /p colon resection), and Prostate Ca. He denies past cardiac stents and states that his heart problem is "tachycardia." He denies cardiac symptoms at this time. He presents with ight knee and leg swelling and pain. He reported that he fell down at home. He denies syncope but dies admit to drinking a quart of Rum and multiple beers last night. He reports drinking alcohol daily. CXR - 09/23/2019 no acute findings Knee Xray - 09/23/2019 Positive for fracture EKG - 09/23/2019 NSR at 91 BPM with a non-specific intra-ventricular conduction delay Nuclear Stress Test 06/07/2019 - EF 61%, no ischemia - Past Medical History Cardio/Vascular: Yes: CAD (s/p stenting), HTN, Hyperlipdemia, [place] Gastrointestinal: Yes: Cancer (colon) Renal/: Yes: Cancer (prostate), Renal Calculi Endocrine: Yes: Diabetes Mellitus, Hyperthyroidism - Past Surgical History Past Surgical History: Yes: Joint Replacement (Right) - Alcohol/Substance Use Hx Alcohol Use: Yes (7 BEER/DAY, QUART OF RUM,OR COUPLE OF DRINKS) History of Substance Use: reports: None - Smoking History Smoking history: Current every day smoker Have you smoked in the past 12 months: Yes Aproximately how many cigarettes per day: 6 - Social History ADL: Independent History of Recent Travel: No Home Medications - Allergies Allergies/Adverse Reactions: Allergies Allergy/AdvReac Type Severity Reaction Status Date / Time Penicillins Allergy Intermediate Rash Verified 09/23/19 01:10 - Home Medications Home Medications: Ambulatory Orders Lisinopril 5 mg PO DAILY 07/23/19 Methimazole 5 mg PO BID 07/23/19 Metoprolol Succinate [Toprol Xl] 50 mg PO DAILY 07/23/19 Simvastatin 10 mg PO DAILY 07/23/19 Tamsulosin HCl 0.4 mg PO DAILY 07/23/19 Ferrous Gluconate [Fergon -] 324 mg PO DAILY 09/23/19 Omeprazole 40 mg PO DAILY 09/23/19 Tramadol HCl 50 mg PO TID 09/23/19 Vital Signs: Vital Signs Temperature 99.0 F 09/23/19 10:00 Pulse Rate 97 H 09/23/19 10:00 Respiratory Rate 20 09/23/19 10:00 Blood Pressure 127/76 09/23/19 10:00 O2 Sat by Pulse Oximetry (%) 97 09/23/19 09:00 Constitutional: Yes: No Distress Eyes: Yes: WNL HENT: Yes: WNL Neck: Yes: WNL Respiratory: Yes: CTA Bilaterally Gastrointestinal: Yes: Soft Cardiovascular: Yes: Regular Rate and Rhythm Heart Sounds: Yes: S1, S2 Edema: No Neurological: Yes: Alert, Oriented - Other Data Labs, Other Data: CBC, BMP 09/23/19 01:25 09/23/19 01:25 INR, PTT INR 1.10 (0.83-1.09) H 09/23/19 01:25 Troponin, BNP 09/23/19 01:25 Troponin I < 0.02 Troponin, BNP 09/23/19 01:25 Troponin I < 0.02 Assessment/Plan 69 year old male with a PMH of HTN, HLD, DM, heavy ETOH use, anemia ( Thrombocytosis), Hyperthyroidism, Arthritis s/p right TKR (07/2019), Colon Ca (s /p colon resection), and Prostate Ca. He denies past cardiac stents and states that his heart problem is "tachycardia." He denies cardiac symptoms at this time. He presents with ight knee and leg swelling and pain. He reported that he fell down at home. He denies syncope but dies admit to drinking a quart of Rum and multiple beers last night. He reports drinking alcohol daily. CXR - 09/23/2019 no acute findings Knee Xray - 09/23/2019 Positive for fracture EKG - 09/23/2019 NSR at 91 BPM with a non-specific intra-ventricular conduction delay Nuclear Stress Test 06/07/2019 - EF 61%, no ischemia Active Medications Atorvastatin Calcium (Lipitor -) 10 mg PO HS [facility] Folic Acid (Folic Acid -) 1 mg PO DAILY [facility] Dextrose/Sodium Chloride (D5-1/2ns -) 1,000 mls @ 75 mls/hr IV ASDIR [facility] Insulin Aspart (Novolog Vial Sliding Scale -) 1 vial SQ ACHS [facility]; Protocol Lisinopril (Prinivil) 5 mg PO DAILY [facility] Last Admin: 09/23/19 09:59 Dose: 5 mg Lorazepam (Ativan Injection -) 2 mg IVPUSH Q6H PRN PRN Reason: WITHDRAWAL(CONT SUBST) Methimazole (Tapazole -) 5 mg PO BID [facility] Last Admin: 09/23/19 10:01 Dose: 5 mg Metoprolol Succinate (Toprol Xl -) 50 mg PO DAILY [facility] Last Admin: 09/23/19 09:59 Dose: 50 mg Morphine Sulfate (Morphine Sulfate) 4 mg IVPUSH Q4H PRN PRN Reason: PAIN LEVEL 6-10 Multivitamins/Minerals/Vitamin C (Tab-A-Vit -) 1 tab PO DAILY [facility] Tamsulosin HCl (Flomax -) 0.4 mg PO DAILY@0830 [facility] Last Admin: 09/23/19 09:59 Dose: 0.4 mg Thiamine HCl (Vitamin B1 -) 100 mg PO DAILY [facility] There are no cardiac contraindications to surgery Continue beta blockage with metoprolol succinate 50 mg PO daily perioperatively
[2019-09-23] MEDS: morphine SULFATE 4 MG/ML VIAL IVPUSH PRN ×2 (15:38→19:35)
[2019-09-23] MEDS: INSULIN SLIDING SCALE (NOVOLOG) 1 VIAL SQ SCH ×2 (16:36→21:58)
--- NOTE | 2019-09-23 16:40 | CON.ORTH ---
Consult Reason for Consultation:: right femur fx - Past Medical History Cardio/Vascular: Yes: CAD (s/p stenting), HTN, Hyperlipdemia, [place] Gastrointestinal: Yes: Cancer (colon) Renal/: Yes: Cancer (prostate), Renal Calculi Endocrine: Yes: Diabetes Mellitus, Hyperthyroidism - Past Surgical History Past Surgical History: Yes: Joint Replacement (Right) - Alcohol/Substance Use Hx Alcohol Use: Yes (7 BEER/DAY, QUART OF RUM,OR COUPLE OF DRINKS) History of Substance Use: reports: None - Smoking History Smoking history: Current every day smoker Have you smoked in the past 12 months: Yes Aproximately how many cigarettes per day: 6 - Social History ADL: Independent History of Recent Travel: No Home Medications - Allergies Allergies/Adverse Reactions: Allergies Allergy/AdvReac Type Severity Reaction Status Date / Time Penicillins Allergy Intermediate Rash Verified 09/23/19 01:10 - Home Medications Home Medications: Ambulatory Orders Lisinopril 5 mg PO DAILY 07/23/19 Methimazole 5 mg PO BID 07/23/19 Metoprolol Succinate [Toprol Xl] 50 mg PO DAILY 07/23/19 Simvastatin 10 mg PO DAILY 07/23/19 Tamsulosin HCl 0.4 mg PO DAILY 07/23/19 Ferrous Gluconate [Fergon -] 324 mg PO DAILY 09/23/19 Omeprazole 40 mg PO DAILY 09/23/19 Tramadol HCl 50 mg PO TID 09/23/19 Physical Exam for Ortho Vital Signs: Vital Signs Temperature 98.8 F 09/23/19 14:58 Pulse Rate 105 H 09/23/19 14:58 Respiratory Rate 20 09/23/19 14:58 Blood Pressure 132/83 09/23/19 14:58 O2 Sat by Pulse Oximetry (%) 97 09/23/19 09:00 Labs: CBC, BMP 09/23/19 01:25 09/23/19 01:25 INR, PTT INR 1.10 (0.83-1.09) H 09/23/19 01:25 - Lower Extremity Leg: Yes: Right, Deformity, Limited ROM, Pain, Swelling, Tenderness, Other (nvi) Imaging - Results X-ray: Image Reviewed Assessment/Plan 69 y/o man with a significant medical history of CAD (?stent, patient denies), [place], HTN, HLD, DM, anemia ( Thrombocytosis), Hyperthyroidism, Arthritis s/p right TKR (07/2019), Colon Ca (s/p colon resection), Prostate Ca (s/p penile pump). Who presents to the ED via ambulance with right knee pain and swelling. Patient reported in the beginning that he did not recall how he injured his right knee, later he reports that he fell down at home. He denies head trauma or LOC. He admits to drinking a quart of Rum and multiple beers last night. He reports drinking alcohol daily. Patient denies fever, chills, cough, SOB, dizziness, headache, CP, palpitations, AP, N/V/D, constipation, hematochezia, melena, hematuria, dysuria. a/p right displaced periprosthetic femur fx Risks and benefits were d/w pt in detail will need orif tomorrow afternoon CT scan to eval fx pattern NPO after midnight surgical clearance d/w Dr. Ragsdale
[2019-09-23] MEDS ORDERED: ATORVASTATIN CA 10 MG TABLET (FP) PO SCH (22:00)
[2019-09-23] MEDS: DEXTROSE 5%-0.45% SALINE 1,000 ML IV SCH (23:25)
[2019-09-24] MEDS: morphine SULFATE 4 MG/ML VIAL IVPUSH PRN ×4 (05:48→22:17)
[2019-09-24] MEDS: INSULIN SLIDING SCALE (NOVOLOG) 1 VIAL SQ SCH ×4 (06:01→22:23)
[2019-09-24 08:01] LABS: BASO % 0.3 % (0-2.0); EOS % 0.2 % (0-4.5); HEMATOCRIT 37.4 % (35.4-49); HEMOGLOBIN 12.3 GM/dL (11.7-16.9); LYMPH % 17.5 % (8-40); MCHC 32.9 g/dl (32.0-35.9); MEAN CELL VOLUME 88.2 fl (80-96); MEAN PLT VOLUME 7.8 fl (7.5-11.1); MONO % 16.2 % (3.8-10.2); NEUT % 65.8 % (42.8-82.8); PLATELET COUNT 237 K/MM3 (134-434); RBC 4.24 M/mm3 (4.00-5.60); RDW 18.5 % (11.9-15.9); WHITE BLOOD COUNT 7.4 K/mm3 (4.0-10.0)
[2019-09-24 08:32] LABS: ALBUMIN 3.5 g/dl (3.4-5.0); BILIRUBIN,TOTAL 1.3 mg/dL (0.2-1); BLOOD UREA NITROGEN 8.9 mg/dL (7-18); CALCIUM 9.2 mg/dL (8.5-10.1); CREATININE 1.1 mg/dL (0.55-1.3); POTASSIUM 3.8 mmol/L (3.5-5.1); TOT PROT 7.1 g/dl (6.4-8.2)
[2019-09-24 08:35] LABS: INR 1.18 (0.83-1.09); PROTHROMBIN TIME (PATIENT) 13.9 SEC (9.7-13.0)
--- NOTE | 2019-09-24 08:44 | PN ---
Progress Note (short form) - Note Progress Note: Ortho OR today for right femur retrograde nail vs orif all questions were answered NPO surgical clearance OR this afternoon d/w Dr. Grace
[2019-09-24] MEDS: TAMSULOSIN HCL 0.4 MG CAP PO SCH (08:51)
[2019-09-24] MEDS: METHIMAZOLE 5 MG TABLET (FP) PO SCH ×3 (08:52→22:16)
[2019-09-24] MEDS: FOLIC ACID 1 MG TABLET (FP) PO SCH ×2 (08:53→10:08)
[2019-09-24] MEDS: LISINOPRIL 5 MG TABLET (FP) PO SCH ×2 (08:53→10:09)
[2019-09-24] MEDS: MULTIVITAMINS (DAILY MVI) TABLET (FP) PO SCH ×2 (08:53→10:09)
[2019-09-24] MEDS: THIAMINE HCL 100 MG TABLET (FP) PO SCH ×2 (08:54→10:09)
[2019-09-24] MEDS ORDERED: VANCOMYCIN 1,000 MG VIAL (RESTRICTED TO ID ONLY) ONE (11:27)
[2019-09-24] MEDS ORDERED: ceFAZolin SODIUM 1 GM VIAL ONE ×2 (11:27→15:43)
--- NOTE | 2019-09-24 11:36 | PN ---
Progress Note, Physician Chief Complaint: Right femur fracture ETOH abuse History of Present Illness: for OR today for right femur retrograde nail vs orif C/O RLE pain only on movement - Current Medication List Current Medications: Active Medications Atorvastatin Calcium (Lipitor -) 10 mg PO HS [facility] Last Admin: 09/23/19 21:49 Dose: 10 mg Folic Acid (Folic Acid -) 1 mg PO DAILY [facility] Last Admin: 09/24/19 10:08 Dose: Not Given Dextrose/Sodium Chloride (D5-1/2ns -) 1,000 mls @ 75 mls/hr IV ASDIR [facility] Last Admin: 09/23/19 23:25 Dose: 75 mls/hr Insulin Aspart (Novolog Vial Sliding Scale -) 1 vial SQ ACHS [facility]; Protocol Last Admin: 09/24/19 11:21 Dose: Not Given Lisinopril (Prinivil) 5 mg PO DAILY [facility] Last Admin: 09/24/19 10:09 Dose: Not Given Lorazepam (Ativan Injection -) 2 mg IVPUSH Q6H PRN PRN Reason: WITHDRAWAL(CONT SUBST) Last Admin: 09/23/19 21:55 Dose: 2 mg Methimazole (Tapazole -) 5 mg PO BID [facility] Last Admin: 09/24/19 10:09 Dose: Not Given Metoprolol Succinate (Toprol Xl -) 50 mg PO DAILY [facility] Last Admin: 09/24/19 10:09 Dose: Not Given Morphine Sulfate (Morphine Sulfate) 4 mg IVPUSH Q4H PRN PRN Reason: PAIN LEVEL 6-10 Last Admin: 09/24/19 05:48 Dose: 4 mg Multivitamins/Minerals/Vitamin C (Tab-A-Vit -) 1 tab PO DAILY [facility] Last Admin: 09/24/19 10:09 Dose: Not Given Tamsulosin HCl (Flomax -) 0.4 mg PO DAILY@0830 [facility] Last Admin: 09/24/19 08:51 Dose: 0.4 mg Thiamine HCl (Vitamin B1 -) 100 mg PO DAILY [facility] Last Admin: 09/24/19 10:09 Dose: Not Given - Objective Vital Signs: Vital Signs Temperature 98.0 F 09/24/19 08:26 Pulse Rate 108 H 09/24/19 08:26 Respiratory Rate 16 09/24/19 08:26 Blood Pressure 132/80 09/24/19 08:26 O2 Sat by Pulse Oximetry (%) 98 09/24/19 09:00 Constitutional: Yes: Well Nourished, No Distress, Calm, Obese Cardiovascular: Yes: Regular Rate and Rhythm Respiratory: Yes: Regular Gastrointestinal: Yes: Normal Bowel Sounds, Soft, Abdomen, Obese Genitourinary: Yes: WNL Musculoskeletal: Yes: Other (RLE pain-Stabilizer) Edema: No Peripheral Pulses WNL: Yes Neurological: Yes: Alert, Oriented Psychiatric: Yes: Alert, Oriented Labs: CBC, BMP 09/24/19 07:23 09/24/19 07:23 INR, PTT INR 1.18 (0.83-1.09) H 09/24/19 07:23 Assessment/Plan (1) Alcohol abuse with intoxication Assessment/Plan: -Dr [place] consult -Received banana bag in ER -Ativan prn for agitation/withdrawal -Thiamine, MVI, Folic Acid -fall precaution -seiuzure precaution Code(s): F10.129 - ALCOHOL ABUSE WITH INTOXICATION, UNSPECIFIED (2) BPH (benign prostatic hyperplasia) Assessment/Plan: -Tamsulosin Code(s): N40.0 - BENIGN PROSTATIC HYPERPLASIA WITHOUT LOWER URINRY TRACT SYMP (3) Diabetes mellitus Assessment/Plan: -BGM ACHS -ISS -HgA1c -diabetic/low Na diet Code(s): E11.9 - TYPE 2 DIABETES MELLITUS WITHOUT COMPLICATIONS (4) Femur fracture Assessment/Plan: -R Knee Xray shows acute spiral oblique fracture extending for a length of at least 6cm with the distal fracture line extending to the level of the superior margin of the femoral prosthesis -Orthopedic consult -NPO for surgery -IV hydration -pain control Code(s): S72.90XA - UNSP FRACTURE OF UNSP FEMUR, INIT ENCNTR FOR CLOSED FRACTURE (5) HLD (hyperlipidemia) Assessment/Plan: -Atorvastatin Code(s): E78.5 - HYPERLIPIDEMIA, UNSPECIFIED (6) HTN (hypertension) Assessment/Plan: -Lisinopril -low Na diet Code(s): I10 - ESSENTIAL (PRIMARY) HYPERTENSION (7) Hyperthyroidism Assessment/Plan: -Methimazole -TSH/T4 ordered Code(s): E05.90 - THYROTOXICOSIS, UNSP WITHOUT THYROTOXIC CRISIS OR STORM Assessment/Plan see problem list dvt ppx
[2019-09-24] MEDS: DEXTROSE 5%-0.45% SALINE 1,000 ML IV SCH ×2 (12:19→18:36)
--- NOTE | 2019-09-24 14:06 | EKG ---
Test Reason : Blood Pressure : / mmHG Vent. Rate : 100 BPM Atrial Rate : 100 BPM P-R Int : 168 ms QRS Dur : 098 ms QT Int : 350 ms P-R-T Axes : 064 -37 058 degrees QTc Int : 451 ms NORMAL SINUS RHYTHM LEFT AXIS DEVIATION Nonspeciifc mild intraventricular conduction delay SEPTAL INFARCT , AGE UNDETERMINED ABNORMAL ECG WHEN COMPARED WITH ECG OF 23-SEP-2019 01:16, SEPTAL INFARCT IS NOW PRESENT Confirmed by Veena Hewitt ([id number]) on 09/24/2019 2:06:25 PM Referred By: Rob HIGGINS Confirmed By:Veena Hewitt
--- NOTE | 2019-09-24 14:22 | PN ---
Progress Note, Physician Chief Complaint: No new complaints. No chest pain or sob. Some mild pain right leg History of Present Illness: 69 year old male with a PMH of HTN, HLD, DM, heavy ETOH use, anemia ( Thrombocytosis), Hyperthyroidism, Arthritis s/p right TKR (07/2019), Colon Ca (s /p colon resection), and Prostate Ca. He denies past cardiac stents and states that his heart problem is "tachycardia." He denies cardiac symptoms at this time. He presents with ight knee and leg swelling and pain. He reported that he fell down at home. He denies syncope but dies admit to drinking a quart of Rum and multiple beers last night. He reports drinking alcohol daily. CXR - 09/23/2019 no acute findings Knee Xray - 09/23/2019 Positive for fracture EKG - 09/23/2019 NSR at 91 BPM with a non-specific intra-ventricular conduction delay Nuclear Stress Test 06/07/2019 - EF 61%, no ischemia - Current Medication List Current Medications: Active Medications Atorvastatin Calcium (Lipitor -) 10 mg PO HS [facility] Last Admin: 09/23/19 21:49 Dose: 10 mg Folic Acid (Folic Acid -) 1 mg PO DAILY [facility] Last Admin: 09/24/19 10:08 Dose: Not Given Dextrose/Sodium Chloride (D5-1/2ns -) 1,000 mls @ 75 mls/hr IV ASDIR [facility] Last Admin: 09/24/19 12:19 Dose: 75 mls/hr Insulin Aspart (Novolog Vial Sliding Scale -) 1 vial SQ ACHS [facility]; Protocol Last Admin: 09/24/19 11:21 Dose: Not Given Lisinopril (Prinivil) 5 mg PO DAILY [facility] Last Admin: 09/24/19 10:09 Dose: Not Given Lorazepam (Ativan Injection -) 2 mg IVPUSH Q6H PRN PRN Reason: WITHDRAWAL(CONT SUBST) Last Admin: 09/23/19 21:55 Dose: 2 mg Methimazole (Tapazole -) 5 mg PO BID [facility] Last Admin: 09/24/19 10:09 Dose: Not Given Metoprolol Succinate (Toprol Xl -) 50 mg PO DAILY [facility] Last Admin: 09/24/19 10:09 Dose: Not Given Morphine Sulfate (Morphine Sulfate) 4 mg IVPUSH Q4H PRN PRN Reason: PAIN LEVEL 6-10 Last Admin: 09/24/19 12:16 Dose: 4 mg Multivitamins/Minerals/Vitamin C (Tab-A-Vit -) 1 tab PO DAILY [facility] Last Admin: 09/24/19 10:09 Dose: Not Given Tamsulosin HCl (Flomax -) 0.4 mg PO DAILY@0830 [facility] Last Admin: 09/24/19 08:51 Dose: 0.4 mg Thiamine HCl (Vitamin B1 -) 100 mg PO DAILY [facility] Last Admin: 09/24/19 10:09 Dose: Not Given - Objective Vital Signs: Vital Signs Temperature 98.0 F 09/24/19 08:26 Pulse Rate 108 H 09/24/19 08:26 Respiratory Rate 16 09/24/19 08:26 Blood Pressure 132/80 09/24/19 08:26 O2 Sat by Pulse Oximetry (%) 98 09/24/19 09:00 Constitutional: Yes: No Distress Neck: Yes: Supple Cardiovascular: Yes: Tachycardia, S1, S2. No: Murmur Respiratory: Yes: CTA Bilaterally Gastrointestinal: Yes: Soft Edema: No Labs: CBC, BMP 09/24/19 07:23 09/24/19 07:23 INR, PTT INR 1.18 (0.83-1.09) H 09/24/19 07:23 Problem List - Problems (1) Tachycardia Code(s): R00.0 - TACHYCARDIA, UNSPECIFIED Assessment/Plan 69 year old male with a PMH of HTN, HLD, DM, heavy ETOH use, anemia ( Thrombocytosis), Hyperthyroidism, Arthritis s/p right TKR (07/2019), Colon Ca (s /p colon resection), and Prostate Ca. He denies past cardiac stents and states that his heart problem is "tachycardia." He denies cardiac symptoms at this time. No chest pain or sob. He presents with right knee and leg swelling and pain. He reported that he fell down at home. He denies syncope but dies admit to etoh use daily. CXR - 09/23/2019 no acute findings Knee Xray - 09/23/2019 Positive for fracture EKG - 09/23/2019 NSR at 91 BPM with a non-specific intra-ventricular conduction delay Nuclear Stress Test 06/07/2019 - EF 61%, no ischemia Planned for surgery for displaced fracture of the distal femur. No cardiac symptoms. NST recently with no ischemia. No murmurs on exam. No acute ischemic changes on ekg. No signs of chf on exam. Continue beta blockage with metoprolol succinate 50 mg PO daily perioperatively Monitor for signs of etoh withdrawal and if so treat appropriately
[2019-09-24] MEDS ORDERED: PROPOFOL 20 ML ONE ×2 (15:05→15:35)
[2019-09-24] MEDS ORDERED: MIDAZOLAM HCL 2 MG/2 ML SINGLE DOSE VIAL ONE ×2 (15:05→15:10)
[2019-09-24] MEDS ORDERED: SUCCINYLCHOLINE CHLORIDE 200 MG/10 ML SYRINGE ONE (15:05)
[2019-09-24] MEDS ORDERED: KETAMINE HCL 200 MG/20 ML VIAL ONE (15:09)
[2019-09-24] MEDS ORDERED: ONDANSETRON 4 MG/2 ML VIAL ONE (15:09)
[2019-09-24] MEDS ORDERED: ceFAZolin SODIUM 1 GM VIAL IVPB ONE (15:23)
[2019-09-24] MEDS ORDERED: KETOROLAC TROMETHAMINE 30 MG/1 ML VIAL ONE (16:46)
[2019-09-24] MEDS ORDERED: oxyCODONE HCL 5 MG TABLET PO PRN (16:59)
--- NOTE | 2019-09-24 17:00 | OP ---
Operative Note - Note: Operative Date: 09/24/19 ([facility]) Pre-Operative Diagnosis: right periprosthetic femur fx Operation: right femur retrograde IM dhiraj Post-Operative Diagnosis: Same as Pre-op Surgeon: David Grace Apprentice Machinist Outside: Adria Washington Anesthesiologist/ACCOUNTING OFFICER: Ryan Ruiz Anesthesia: General, Local Estimated Blood Loss (mls): 50
[2019-09-24] MEDS ORDERED: ONDANSETRON 4 MG/2 ML VIAL IVPUSH PRN (17:10)
[2019-09-24] MEDS ORDERED: CEFAZOLIN 2 GM/D5W 2 GM/50 ML ML IVPB SCH (18:00)
[2019-09-24] MEDS ORDERED: LORazepam 2 MG/ML SDV VIAL IVPUSH PRN (18:19)
[2019-09-24] MEDS: LACTATED RINGERS SOLUTION 1,000 ML IV SCH (18:36)
[2019-09-24] MEDS ORDERED: INSULIN (NOVOLOG) ASPART 100 UNITS/ML 10ML VIAL ONE (21:17)
[2019-09-24] MEDS: ATORVASTATIN CA 10 MG TABLET (FP) PO SCH (22:16)
[2019-09-24] MEDS: CEFAZOLIN 2 GM/D5W 2 GM/50 ML ML IVPB SCH (22:19)
[2019-09-25] MEDS: morphine SULFATE 4 MG/ML VIAL IVPUSH PRN ×5 (04:34→22:36)
[2019-09-25] MEDS: CEFAZOLIN 2 GM/D5W 2 GM/50 ML ML IVPB SCH (06:12)
[2019-09-25] MEDS: INSULIN SLIDING SCALE (NOVOLOG) 1 VIAL SQ SCH ×4 (06:12→22:36)
[2019-09-25 08:03] LABS: HEMATOCRIT 31.9 % (35.4-49); HEMOGLOBIN 10.5 GM/dL (11.7-16.9); MCH 29.4 pg (25.7-33.7); MEAN CELL VOLUME 88.9 fl (80-96); MEAN PLT VOLUME 8.1 fl (7.5-11.1); PLATELET COUNT 232 K/MM3 (134-434); RBC 3.59 M/mm3 (4.00-5.60); RDW 17.8 % (11.9-15.9); WHITE BLOOD COUNT 10.5 K/mm3 (4.0-10.0)
[2019-09-25 08:17] LABS: CALCIUM 8.7 mg/dL (8.5-10.1); CREATININE 1.3 mg/dL (0.55-1.3)
--- NOTE | 2019-09-25 08:47 | PN ---
HC Provider Note Provider Note: Anesthesia Post OP Note Pt seen s/p GA for hip fx Pt awake alert, denies n/v, no urinary retention Complains of poor pain management VSS no apparent anesthesi acomplications Gretchen Vu.
[2019-09-25] MEDS: MULTIVITAMINS (DAILY MVI) TABLET (FP) PO SCH (09:27)
[2019-09-25] MEDS: METHIMAZOLE 5 MG TABLET (FP) PO SCH ×2 (09:27→22:36)
[2019-09-25] MEDS: FOLIC ACID 1 MG TABLET (FP) PO SCH (09:27)
[2019-09-25] MEDS: LISINOPRIL 5 MG TABLET (FP) PO SCH (09:27)
[2019-09-25] MEDS: TAMSULOSIN HCL 0.4 MG CAP PO SCH (09:27)
[2019-09-25] MEDS: THIAMINE HCL 100 MG TABLET (FP) PO SCH (09:27)
[2019-09-25] MEDS: ENOXAPARIN NA (PORCINE) 40 MG/0.4 ML DISP.SYRIN SQ SCH (09:28)
--- NOTE | 2019-09-25 09:34 | PN ---
Progress Note (short form) - Note Progress Note: Pt seen and examined. He is on POD #1 s/p right femur ORIF. Doing very well. Comfortable. Minimal c/o pain. No other complaints. AVSS H/H decreased but not too low, at 10.5/31.9 RLE NVI Good ROM with minimal pain at the right ankle, foot, toes Limited ROM at the right hip and knee, but intact and improving Dressings are CDI, no drainage Imp Overall doing very well on POD #1 Rec DC planning, ? possibly [facility] (as per pt request) P.T., NWB RLE OOB to chair SCDs to B/L TERRA
[2019-09-25] MEDS ORDERED: ENOXAPARIN NA (PORCINE) 40 MG/0.4 ML DISP.SYRIN SQ SCH (10:00)
--- NOTE | 2019-09-25 10:17 | OP ---
DATE OF OPERATION: 09/24/2019 PREOPERATIVE DIAGNOSIS: Right distal femoral periprosthetic femoral shaft fracture. POSTOPERATIVE DIAGNOSIS: Right distal femoral periprosthetic femoral shaft fracture. PROCEDURE: Complex retrograde intramedullary rodding through a right total knee replacement. SURGICAL ATTENDING: David Grace MD SLURRY MAN: SANAZ Villanueva ANESTHESIA: Attempted spinal, followed by general. CLOSURE: A Dany retrograde femoral nail 10 x 350 mm with 2 distal and one proximal locking screw, a No. 1 Vicryl fascia, 0 and 20 subcutaneous and griselda for the skin. ESTIMATED BLOOD LOSS: Approximately 100 mL COMPLICATIONS: None. CONDITION: Recovery room in stable condition. INDICATIONS FOR OPERATIVE PROCEDURE: Patient is a 69-year-old male 6 weeks status post press-fit right total knee replacement. Patient was drinking alcohol and slipped and fell and pulled his femur in the distal one-third above the right total knee replacement. The CAT scan and x-ray revealed that the knee replacement appeared to be stable and that the fracture was a long spiral beginning slightly above the component and propagating proximally. It was thus decided that a retrograde femoral nail through the notch of the femoral component would be indicated. DESCRIPTION OF PROCEDURE: The patient was taken to the operating room on September 24, 2019. Attempted spinal was followed by general anesthesia. IV Kefzol was administered prophylactically prior to the case. The right lower extremity prepped and draped in the usual sterile fashion. Utilizing the previous made incision, a 6 cm longitudinal incision over the distal half of the incision was made. Full-thickness was carried down to the level of the extensor mechanism. Flaps were made medial and lateral to perform the procedure. A medial parapatellar arthrotomy from the patella propagating distally was incised. Hemostasis was achieved with Bovie cautery. Sharp dissection was carried medial to the patellar tendon until access was gained into the intramedullary canal. A padded triangle was placed underneath the knee, keeping the knee at about 45 degrees of flexion. This removed the keel from the PF polyethylene implant and exposed the starting point for the intramedullary dhiraj in the notch of the femoral component. The guidewire was drilled through the notch into the distal femur and then over reamed with the 12 mm proximal reamer. Excellent position was ensured by the fluoroscopy in the AP and lateral plane. A guidewire was placed up the canal past the fracture into the intramedullary canal of the proximal femur all the way up to the lesser trochanter. The intramedullary canal was sounded with the 11.5 reamer, which achieved slight chatter at its mid portion. It was thus decided to use the 10 mm dhiraj, which was measured for the appropriate length being about 350 mm. The dhiraj was then malleted down into place. Using the outrigger, 2 distal interlocks were placed lateral to medial through stab incisions, one in the No. 1 slot, one in the No. 4 slot achieving excellent fixation. One proximal interlock was placed anterior posterior using the free-hand technique locking screw street flusher driver achieving excellent fixation proximally. The outrigger was removed. Proper placement of all hardware with excellent reduction of the fracture was ensured by the fluoroscopy. Digital palpation and visualization revealed that the dhiraj was below the surface and not impinging on the total knee inside the knee joint. The knee was taken through a range of motion and found to go from full extension to 120 degrees of flexion with excellent fixation at the fracture site and good tracking of the patella. The knee was copiously irrigated with pulse antibiotic irrigation. Vancomycin powder was placed in the knee and then the arthrotomy was closed with No. 1 Vicryl, 2-0 was used for the subcutaneous and griselda for the skin. A sterile pressure dressing was applied to the knee. Patient was awakened from anesthesia and transferred to the recovery room in stable condition, no complications. Estimated blood loss: Less than 100 mL. Due to the periprosthetic nature of this component, the complexity level of this case was on the high side needing to fit the dhiraj in between the femoral component and still achieving distal fixation. This was ensured during the operation and was completed successfully. Tractor Trailer Technician, Adria Washington, my PA, was vitally necessary in order to hold fixation and position while fixation and implantation of the dhiraj was performed. Dana [id number]
--- NOTE | 2019-09-25 10:44 | PN ---
Progress Note, Physician History of Present Illness: pt seen and examined today in nad. tolerated surgery without cardiac complications. no new complaints. currently. - Current Medication List Current Medications: Active Medications Atorvastatin Calcium (Lipitor -) 10 mg PO HS [facility] Last Admin: 09/24/19 22:16 Dose: 10 mg Enoxaparin Sodium (Lovenox -) 40 mg SQ DAILY [facility] Last Admin: 09/25/19 09:28 Dose: 40 mg Fentanyl (Sublimaze Injection -) 25 mcg IVPUSH [id number] PRN PRN Reason: PAIN-PACU ORDER X 4 DOSES ONLY Folic Acid (Folic Acid -) 1 mg PO DAILY [facility] Last Admin: 09/25/19 09:27 Dose: 1 mg Lactated Ringer's (Lactated Ringers Solution) 1,000 mls @ 75 mls/hr IV ASDIR [facility] Last Admin: 09/24/19 18:36 Dose: Not Given Dextrose/Sodium Chloride (D5-1/2ns -) 1,000 mls @ 75 mls/hr IV ASDIR [facility] Last Admin: 09/24/19 18:36 Dose: 75 mls/hr Insulin Aspart (Novolog Vial Sliding Scale -) 1 vial SQ ACHS [facility]; Protocol Last Admin: 09/25/19 06:12 Dose: Not Given Lisinopril (Prinivil) 5 mg PO DAILY [facility] Last Admin: 09/25/19 09:27 Dose: 5 mg Lorazepam (Ativan Injection -) 2 mg IVPUSH Q6H PRN PRN Reason: WITHDRAWAL(CONT SUBST) Methimazole (Tapazole -) 5 mg PO BID [facility] Last Admin: 09/25/19 09:27 Dose: 5 mg Metoprolol Succinate (Toprol Xl -) 50 mg PO DAILY [facility] Last Admin: 09/25/19 09:27 Dose: 50 mg Morphine Sulfate (Morphine Sulfate) 4 mg IVPUSH Q4H PRN PRN Reason: PAIN LEVEL 6-10 Last Admin: 09/25/19 09:27 Dose: 4 mg Multivitamins/Minerals/Vitamin C (Tab-A-Vit -) 1 tab PO DAILY [facility] Last Admin: 09/25/19 09:27 Dose: 1 tab Ondansetron HCl (Zofran Injection) 4 mg IVPUSH Q6H PRN PRN Reason: NAUSEA AND/OR VOMITING Oxycodone HCl (Roxicodone -) 5 mg PO Q4H PRN PRN Reason: PAIN LEVEL 6-10 Tamsulosin HCl (Flomax -) 0.4 mg PO DAILY@0830 [facility] Last Admin: 09/25/19 09:27 Dose: 0.4 mg Thiamine HCl (Vitamin B1 -) 100 mg PO DAILY [facility] Last Admin: 09/25/19 09:27 Dose: 100 mg - Objective Vital Signs: Vital Signs Temperature 98 F 09/25/19 08:17 Pulse Rate 115 H 09/25/19 08:17 Respiratory Rate 09/25/19 08:17 Blood Pressure 104/66 09/25/19 08:17 O2 Sat by Pulse Oximetry (%) 97 09/24/19 21:00 Constitutional: Yes: No Distress, Calm Eyes: Yes: Conjunctiva Clear, EOM Intact HENT: Yes: Atraumatic, Normocephalic Neck: Yes: Supple, Trachea Midline Cardiovascular: Yes: Regular Rate and Rhythm, S1, S2. No: Bradycardia, Tachycardia, Pulse Irregular, Bruit, JVD, Gallop, Murmur, Rub, S3, S4, Varicosities Respiratory: Yes: Regular, CTA Bilaterally Gastrointestinal: Yes: Normal Bowel Sounds, Soft. No: Distention, Tenderness Musculoskeletal: Yes: Joint Swelling, Muscle Weakness Edema: No Peripheral Pulses WNL: Yes Neurological: Yes: Alert, Oriented Psychiatric: Yes: Alert, Oriented Labs: CBC, BMP 09/25/19 07:06 09/25/19 07:06 INR, PTT INR 1.18 (0.83-1.09) H 09/24/19 07:23 - ....Imaging Chest X-ray: Report Reviewed, Image Reviewed EKG: Report Reviewed, Image Reviewed Other: Report Reviewed, Image Reviewed Assessment/Plan 69 year old male with a PMH of HTN, HLD, DM, heavy ETOH use, anemia ( Thrombocytosis), Hyperthyroidism, Arthritis s/p right TKR (07/2019), Colon Ca (s /p colon resection), and Prostate Ca. He denies past cardiac stents and states that his heart problem is "tachycardia." He denies cardiac symptoms at this time. No chest pain or sob. He presents with right knee and leg swelling and pain. He reported that he fell down at home. He denies syncope but dies admit to etoh use daily. Preop cardiovascular exam EKG - 09/23/2019 NSR at 91 BPM with a non-specific intra-ventricular conduction delay Nuclear Stress Test 06/07/2019 - EF 61%, no ischemia tolerated surgery without cardiac complications Continue beta blockage with metoprolol succinate 50 mg PO daily perioperatively No additional inpatient cardiac work up is needed at this time. Will see as needed. Please call with any additional questions.
--- NOTE | 2019-09-25 11:20 | PN ---
Progress Note, Physician Chief Complaint: Right femur fracture ETOH abuse History of Present Illness: Operative Date: 09/24/19 ([facility]) Pre-Operative Diagnosis: right periprosthetic femur fx Operation: right femur retrograde IM dhiraj Post-Operative Diagnosis: Same as Pre-op Surgeon: David Grace C/O RLE pain only on movement Mild anemia - Current Medication List Current Medications: Active Medications Atorvastatin Calcium (Lipitor -) 10 mg PO HS [facility] Last Admin: 09/24/19 22:16 Dose: 10 mg Enoxaparin Sodium (Lovenox -) 40 mg SQ DAILY [facility] Last Admin: 09/25/19 09:28 Dose: 40 mg Fentanyl (Sublimaze Injection -) 25 mcg IVPUSH [id number] PRN PRN Reason: PAIN-PACU ORDER X 4 DOSES ONLY Folic Acid (Folic Acid -) 1 mg PO DAILY [facility] Last Admin: 09/25/19 09:27 Dose: 1 mg Lactated Ringer's (Lactated Ringers Solution) 1,000 mls @ 75 mls/hr IV ASDIR [facility] Last Admin: 09/24/19 18:36 Dose: Not Given Dextrose/Sodium Chloride (D5-1/2ns -) 1,000 mls @ 75 mls/hr IV ASDIR [facility] Last Admin: 09/24/19 18:36 Dose: 75 mls/hr Ferric Carboxymaltose 750 mg/ (Sodium Chloride) 265 mls @ 530 mls/hr IVPB ONCE ONE Stop: 09/25/19 11:44 Insulin Aspart (Novolog Vial Sliding Scale -) 1 vial SQ [facility]; Protocol Last Admin: 09/25/19 10:44 Dose: Not Given Lisinopril (Prinivil) 5 mg PO DAILY [facility] Last Admin: 09/25/19 09:27 Dose: 5 mg Lorazepam (Ativan Injection -) 2 mg IVPUSH Q6H PRN PRN Reason: WITHDRAWAL(CONT SUBST) Methimazole (Tapazole -) 5 mg PO BID [facility] Last Admin: 09/25/19 09:27 Dose: 5 mg Metoprolol Succinate (Toprol Xl -) 50 mg PO DAILY [facility] Last Admin: 09/25/19 09:27 Dose: 50 mg Morphine Sulfate (Morphine Sulfate) 4 mg IVPUSH Q4H PRN PRN Reason: PAIN LEVEL 6-10 Last Admin: 09/25/19 09:27 Dose: 4 mg Multivitamins/Minerals/Vitamin C (Tab-A-Vit -) 1 tab PO DAILY [facility] Last Admin: 09/25/19 09:27 Dose: 1 tab Ondansetron HCl (Zofran Injection) 4 mg IVPUSH Q6H PRN PRN Reason: NAUSEA AND/OR VOMITING Oxycodone HCl (Roxicodone -) 5 mg PO Q4H PRN PRN Reason: PAIN LEVEL 6-10 Polysaccharide Iron Complex (Niferex-150 -) 150 mg PO DAILY [facility] Tamsulosin HCl (Flomax -) 0.4 mg PO DAILY@0830 [facility] Last Admin: 09/25/19 09:27 Dose: 0.4 mg Thiamine HCl (Vitamin B1 -) 100 mg PO DAILY [facility] Last Admin: 09/25/19 09:27 Dose: 100 mg - Objective Vital Signs: Vital Signs Temperature 98 F 09/25/19 08:17 Pulse Rate 115 H 09/25/19 08:17 Respiratory Rate 20 09/25/19 09:00 Blood Pressure 104/66 09/25/19 08:17 O2 Sat by Pulse Oximetry (%) 97 09/25/19 09:00 Constitutional: Yes: Well Nourished, No Distress, Calm Cardiovascular: Yes: Regular Rate and Rhythm Respiratory: Yes: Regular Gastrointestinal: Yes: Normal Bowel Sounds, Soft, Abdomen, Obese Genitourinary: Yes: WNL Musculoskeletal: Yes: Other (RLE pain) Extremities: Yes: WNL Edema: No Peripheral Pulses WNL: Yes Wound/Incision: Yes: Dressing Dry and Intact Neurological: Yes: Alert, Oriented Psychiatric: Yes: Alert, Oriented Labs: CBC, BMP 09/25/19 07:06 09/25/19 07:06 INR, PTT INR 1.18 (0.83-1.09) H 09/24/19 07:23 Problem List - Problems (1) Anemia Assessment/Plan: -Previous low in Iron % -Injectafer once -Also start iron polysaccharide 1 tab po daily -EGD done by Dr Lee 07/2019 shows some non bleeding ulcers+ gastritis -Start PPI -monitor trend Problems reviewed: Yes Code(s): D64.9 - ANEMIA, UNSPECIFIED (2) History of colon cancer Problems reviewed: Yes Code(s): Z85.038 - PERSONAL HISTORY OF MALIGNANT NEOPLASM OF LARGE INTESTINE Assessment/Plan (1) Alcohol abuse with intoxication Assessment/Plan: -Dr Montana consult -Received banana bag in ER -Ativan prn for agitation/withdrawal -Thiamine, MVI, Folic Acid -fall precaution -seiuzure precaution Code(s): F10.129 - ALCOHOL ABUSE WITH INTOXICATION, UNSPECIFIED (2) BPH (benign prostatic hyperplasia) Assessment/Plan: -Tamsulosin Code(s): N40.0 - BENIGN PROSTATIC HYPERPLASIA WITHOUT LOWER URINRY TRACT SYMP (3) Diabetes mellitus Assessment/Plan: -BGM ACHS -ISS -HgA1c -diabetic/low Na diet Code(s): E11.9 - TYPE 2 DIABETES MELLITUS WITHOUT COMPLICATIONS (4) Femur fracture Assessment/Plan: -R Knee Xray shows acute spiral oblique fracture extending for a length of at least 6cm with the distal fracture line extending to the level of the superior margin of the femoral prosthesis -Orthopedic consult -IV hydration -pain control -S/P right femur retrograde IM dhiraj Code(s): S72.90XA - UNSP FRACTURE OF UNSP FEMUR, INIT ENCNTR FOR CLOSED FRACTURE (5) HLD (hyperlipidemia) Assessment/Plan: -Atorvastatin Code(s): E78.5 - HYPERLIPIDEMIA, UNSPECIFIED (6) HTN (hypertension) Assessment/Plan: -Lisinopril -low Na diet Code(s): I10 - ESSENTIAL (PRIMARY) HYPERTENSION (7) Hyperthyroidism Assessment/Plan: -Methimazole -TSH/T4 ordered Code(s): E05.90 - THYROTOXICOSIS, UNSP WITHOUT THYROTOXIC CRISIS OR STORM Assessment/Plan see problem list dvt ppx PT eval D/C planning to [facility]
[2019-09-25] MEDS ORDERED: FERRIC CARBOXYMALTOSE 750 MG in SODIUM CHLORIDE 250 ML IVPB ONE (12:00)
[2019-09-25] MEDS: PANTOPRAZOLE 40 MG TABLET PO SCH (12:47)
[2019-09-25] MEDS: LACTATED RINGERS SOLUTION 1,000 ML IV SCH (17:59)
[2019-09-25] MEDS: DEXTROSE 5%-0.45% SALINE 1,000 ML IV SCH (18:49)
[2019-09-25] MEDS: ATORVASTATIN CA 10 MG TABLET (FP) PO SCH (22:36)
[2019-09-26] MEDS: morphine SULFATE 4 MG/ML VIAL IVPUSH PRN ×3 (06:24→18:31)
[2019-09-26] MEDS: INSULIN SLIDING SCALE (NOVOLOG) 1 VIAL SQ SCH ×3 (06:24→17:00)
[2019-09-26 08:24] LABS: BASO % 0.6 % (0-2.0); EOS % 0.5 % (0-4.5); HEMOGLOBIN 9.6 GM/dL (11.7-16.9); LYMPH % 17.2 % (8-40); MCH 29.5 pg (25.7-33.7); MEAN CELL VOLUME 89.3 fl (80-96); MEAN PLT VOLUME 7.9 fl (7.5-11.1); NEUT % 70.7 % (42.8-82.8); PLATELET COUNT 220 K/MM3 (134-434); RBC 3.24 M/mm3 (4.00-5.60); RDW 17.8 % (11.9-15.9); WHITE BLOOD COUNT 8.3 K/mm3 (4.0-10.0)
[2019-09-26 08:48] LABS: ALBUMIN 2.9 g/dl (3.4-5.0); BILIRUBIN,TOTAL 0.9 mg/dL (0.2-1); BLOOD UREA NITROGEN 13.3 mg/dL (7-18); CALCIUM 8.8 mg/dL (8.5-10.1); CREATININE 1.1 mg/dL (0.55-1.3); POTASSIUM 3.5 mmol/L (3.5-5.1); TOT PROT 6.4 g/dl (6.4-8.2)
[2019-09-26] MEDS: FOLIC ACID 1 MG TABLET (FP) PO SCH (09:50)
[2019-09-26] MEDS: TAMSULOSIN HCL 0.4 MG CAP PO SCH (09:50)
[2019-09-26] MEDS: PANTOPRAZOLE 40 MG TABLET PO SCH (09:50)
--- NOTE | 2019-09-26 09:50 | PN ---
Progress Note (short form) - Note Progress Note: Ortho Pt seen and examined s/p right femur retrograde IM dhiraj pod #2 Selected Entries 09/26/19 05:43 Temperature 98.9 F Pulse Rate 106 H Respiratory 21 H Rate Blood Pressure 117/64 Laboratory Tests 09/26/19 07:50 WBC 8.3 Hgb 9.6 L Hct 29.0 L Plt Count 220 dressing with slight saturation, + swelling, nvi a/p PT NWB ROM exercises dvt ppx pain control d/c planning for rehab
[2019-09-26] MEDS: MULTIVITAMINS (DAILY MVI) TABLET (FP) PO SCH (09:51)
[2019-09-26] MEDS: THIAMINE HCL 100 MG TABLET (FP) PO SCH (09:51)
[2019-09-26] MEDS: METHIMAZOLE 5 MG TABLET (FP) PO SCH (09:51)
[2019-09-26] MEDS: LISINOPRIL 5 MG TABLET (FP) PO SCH (09:51)
[2019-09-26] MEDS: ENOXAPARIN NA (PORCINE) 40 MG/0.4 ML DISP.SYRIN SQ SCH (09:52)
[2019-09-26] MEDS ORDERED: IRON POLYSACCHARIDES 150 MG CAPSULE PO SCH (10:00)
--- NOTE | 2019-09-26 11:26 | DS ---
Physical Examination Vital Signs: Vital Signs Temperature 98.8 F 09/26/19 09:56 Pulse Rate 110 H 09/26/19 09:56 Respiratory Rate 18 09/26/19 09:56 Blood Pressure 127/78 09/26/19 09:56 O2 Sat by Pulse Oximetry (%) 97 09/26/19 09:00 Findings/Remarks: This is a 69 y/o man with a significant medical history of CAD (?stent, patient denies), ID, HTN, HLD, DM, anemia ( Thrombocytosis), Hyperthyroidism, Arthritis s/p right TKR (07/2019), Colon Ca (s/p colon resection), Prostate Ca (s/p penile pump). Who presents to the ED via ambulance with right knee pain and swelling. Patient reported in the beginning that he did not recall how he injured his right knee, later he reports that he fell down at home. He denies head trauma or LOC. He admits to drinking a quart of Rum and multiple beers last night. He reports drinking alcohol daily. Patient denies fever, chills, cough, SOB, dizziness, headache, CP, palpitations, AP, N/V/D, constipation, hematochezia, melena, hematuria, dysuria. s/p right femur retrograde IM dhiraj pod #2 (1) Anemia Assessment/Plan: -Previous low in Iron % -Injectafer once on 09/25/19 -Also start iron polysaccharide 1 tab po daily -EGD done by Dr Lee 07/2019 shows some non bleeding ulcers+ gastritis -Started PPI -monitor trend Problems reviewed: Yes Code(s): D64.9 - ANEMIA, UNSPECIFIED (2) History of colon cancer Problems reviewed: Yes Code(s): Z85.038 - PERSONAL HISTORY OF MALIGNANT NEOPLASM OF LARGE INTESTINE Assessment/Plan (1) Alcohol abuse with intoxication Assessment/Plan: -Dr Montana consult -Received banana bag in ER -Ativan prn for agitation/withdrawal -Thiamine, MVI, Folic Acid -fall precaution -seiuzure precaution Code(s): F10.129 - ALCOHOL ABUSE WITH INTOXICATION, UNSPECIFIED (2) BPH (benign prostatic hyperplasia) Assessment/Plan: -Tamsulosin Code(s): N40.0 - BENIGN PROSTATIC HYPERPLASIA WITHOUT LOWER URINRY TRACT SYMP (3) Diabetes mellitus Assessment/Plan: -BGM ACHS -ISS -HgA1c -diabetic/low Na diet Code(s): E11.9 - TYPE 2 DIABETES MELLITUS WITHOUT COMPLICATIONS (4) Femur fracture Assessment/Plan: -R Knee Xray shows acute spiral oblique fracture extending for a length of at least 6cm with the distal fracture line extending to the level of the superior margin of the femoral prosthesis -Orthopedic consult -Encourage PO fluids -pain control -S/P right femur retrograde IM dhiraj Code(s): S72.90XA - UNSP FRACTURE OF UNSP FEMUR, INIT ENCNTR FOR CLOSED FRACTURE (5) HLD (hyperlipidemia) Assessment/Plan: -Atorvastatin Code(s): E78.5 - HYPERLIPIDEMIA, UNSPECIFIED (6) HTN (hypertension) Assessment/Plan: -Lisinopril -low Na diet Code(s): I10 - ESSENTIAL (PRIMARY) HYPERTENSION (7) Hyperthyroidism Assessment/Plan: -Methimazole -TSH/T4 ordered Code(s): E05.90 - THYROTOXICOSIS, UNSP WITHOUT THYROTOXIC CRISIS OR STORM Constitutional: Yes: Well Nourished, No Distress, Calm Cardiovascular: Yes: Regular Rate and Rhythm Respiratory: Yes: Regular Gastrointestinal: Yes: Normal Bowel Sounds, Soft Renal/: Yes: WNL Musculoskeletal: Yes: Muscle Weakness Edema: No Peripheral Pulses WNL: Yes Wound/Incision: Yes: Dressing Dry and Intact Neurological: Yes: Alert, Oriented Psychiatric: Yes: Alert, Oriented Labs: CBC, BMP 09/26/19 07:50 09/26/19 07:50 Discharge Summary Problems reviewed: Yes Reason For Visit: FRACTURE OF FEMUR Current Active Problems Alcohol abuse with intoxication (Acute) BPH (benign prostatic hyperplasia) (Acute) Diabetes mellitus (Acute) Femur fracture (Acute) HLD (hyperlipidemia) (Acute) HTN (hypertension) (Acute) Laboratory Last Values WBC 8.3 K/mm3 (4.0-10.0) 09/26/19 07:50 RBC 3.24 M/mm3 (4.00-5.60) L 09/26/19 07:50 Hgb 9.6 GM/dL (11.7-16.9) L 09/26/19 07:50 Hct 29.0 % (35.4-49) L 09/26/19 07:50 MCV 89.3 fl (80-96) 09/26/19 07:50 MCH 29.5 pg (25.7-33.7) 09/26/19 07:50 MCHC 33.0 g/dl (32.0-35.9) 09/26/19 07:50 RDW 17.8 % (11.9-15.9) H 09/26/19 07:50 Plt Count 220 K/MM3 (134-434) 09/26/19 07:50 MPV 7.9 fl (7.5-11.1) 09/26/19 07:50 Absolute Neuts (auto) 5.9 K/mm3 (1.5-8.0) 09/26/19 07:50 Neutrophils % 70.7 % (42.8-82.8) 09/26/19 07:50 Lymphocytes % 17.2 % (8-40) 09/26/19 07:50 Monocytes % 11.0 % (3.8-10.2) H 09/26/19 07:50 Eosinophils % 0.5 % (0-4.5) D 09/26/19 07:50 Basophils % 0.6 % (0-2.0) 09/26/19 07:50 Nucleated RBC % 0 % (0-0) 09/26/19 07:50 PT with INR 13.90 SEC (9.7-13.0) H 09/24/19 07:23 INR 1.18 (0.83-1.09) H 09/24/19 07:23 Sodium 138 mmol/L (136-145) 09/26/19 07:50 Potassium 3.5 mmol/L (3.5-5.1) 09/26/19 07:50 Chloride 106 mmol/L (98-107) 09/26/19 07:50 Carbon Dioxide 24 mmol/L (21-32) 09/26/19 07:50 Anion Gap 8 MMOL/L (8-16) 09/26/19 07:50 BUN 13.3 mg/dL (7-18) 09/26/19 07:50 Creatinine 1.1 mg/dL (0.55-1.3) 09/26/19 07:50 Est GFR (CKD-EPI)AfAm 78.97 09/26/19 07:50 Est GFR (CKD-EPI)NonAf 68.13 09/26/19 07:50 POC Glucometer 100 UNITS (80-120) 09/26/19 06:05 Random Glucose 123 mg/dL (74-106) H 09/26/19 07:50 Hemoglobin A1c % 4.3 % (4.2-6.3) 09/26/19 07:50 Uric Acid 6.8 mg/dL (2.6-7.2) 09/23/19 01:25 Calcium 8.8 mg/dL (8.5-10.1) 09/26/19 07:50 Magnesium 1.9 mg/dL (1.8-2.4) 09/23/19 01:25 Total Bilirubin 0.9 mg/dL (0.2-1) 09/26/19 07:50 AST 13 U/L (15-37) L 09/26/19 07:50 ALT 11 U/L (13-61) L 09/26/19 07:50 Alkaline Phosphatase 65 U/L (45-117) 09/26/19 07:50 Creatine Kinase 228 U/L (26-308) 09/23/19 01:25 Creatine Kinase Index 0.5 % (0.0-5.0) 09/23/19 01:25 CK-MB (CK-2) 1.2 ng/mL (0.5-3.6) 09/23/19 01:25 Troponin I < 0.02 ng/ml (0.00-0.05) 09/23/19 01:25 Total Protein 6.4 g/dl (6.4-8.2) 09/26/19 07:50 Albumin 2.9 g/dl (3.4-5.0) L 09/26/19 07:50 TSH 1.87 uIU/ml (0.358-3.74) D 09/24/19 07:23 Free T4 0.94 ng/dl (0.76-1.16) 09/24/19 07:23 Total T3 123.00 ng/dl (71-180) 09/24/19 07:23 Alcohol, Quantitative 293.7 mg/dL (0.0-5.0) H 09/23/19 01:25 Vital Signs Temp 98.8 F 09/26/19 09:56 Pulse 110 H 09/26/19 09:56 Resp 18 09/26/19 09:56 BP 127/78 09/26/19 09:56 Pulse Ox 97 09/26/19 09:00 Intake & Output 09/25/19 09/25/19 09/26/19 11:59 23:59 11:59 Intake Total 640 300 320 Output Total 400 Balance 640 -100 320 Intake: Oral 300 Oral Supplement 640 320 Output: Urine 400 Void 400 Other: Voiding Method Toilet Toilet Urinal Bowel Movement No Condition: Stable - Instructions Referrals: Lynsey Wilson MD [Primary Care Provider] - Disposition: [facility] FACILITY - Home Medications Comprehensive Discharge Medication List: Ambulatory Orders Lisinopril 5 mg PO DAILY 07/23/19 Methimazole 5 mg PO BID 07/23/19 Metoprolol Succinate [Toprol Xl] 50 mg PO DAILY 07/23/19 Simvastatin 10 mg PO DAILY 07/23/19 Tamsulosin HCl 0.4 mg PO DAILY 07/23/19 Enoxaparin [Lovenox -] 40 mg SQ DAILY disp.syrin 09/25/19 Enoxaparin [Lovenox -] 40 mg SQ DAILY disp.syrin 09/25/19 Folic Acid - 1 mg PO DAILY tablet 09/25/19 Folic Acid - 1 mg PO DAILY tablet 09/25/19 Insulin Sliding Scale [Novolog Vial Sliding Scale -] 1 vial SQ ACHS units 09/25 Insulin Sliding Scale [Novolog Vial Sliding Scale -] 1 vial SQ ACHS units 09/25 Iron Polysaccharides [Niferex-150 -] 150 mg PO DAILY capsule 09/25/19 Multivitamins [Multivit ([facility] Formulary)] 1 tab PO DAILY tab 09/25/19 Multivitamins [Multivit ([facility] Formulary)] 1 tab PO DAILY tab 09/25/19 Pantoprazole Sodium [Protonix -] 40 mg PO DAILY tablet.ec 09/25/19 Thiamine HCl [Vitamin B1 -] 100 mg PO DAILY tablet 09/25/19 Thiamine HCl [Vitamin B1 -] 100 mg PO DAILY tablet 09/25/19 oxyCODONE HCL [Roxicodone -] 5 mg PO Q4H PRN #180 tablet MDD 6 09/25/19 Prescription Drug Monitoring Program (I-STOP) results: I-STOP reviewed and no issues identified
[2019-09-26 15:22] VITALS: BP 118/58; PULSE 112; TEMP 98.7
== END 2019-09-26 20:15 | DRG 481 ==
LOC: JER 23:48 → JERBED 09-23 02:41 → J6S 09-23 04:48
PROVIDERS: ADMIT Internal Medicine; ATTEND Family Medicine
PROC: 0QS706Z Reposition Left Upper Femur with Intramedullary Internal Fixation Device, Open Approach (ICD-10-PCS; principal; 2019-09-24 14:30)
DX: S72.401A Unspecified fracture of lower end of right femur, initial encounter for closed fracture (principal); M97.11XA Periprosthetic fracture around internal prosthetic right knee joint, initial encounter; I25.10 Atherosclerotic heart disease of native coronary artery without angina pectoris; I10 Essential (primary) hypertension; E78.5 Hyperlipidemia, unspecified; E11.9 Type 2 diabetes mellitus without complications; E05.90 Thyrotoxicosis, unspecified without thyrotoxic crisis or storm; I25.2 Old myocardial infarction; N40.0 Benign prostatic hyperplasia without lower urinary tract symptoms; D64.9 Anemia, unspecified; E66.9 Obesity, unspecified; F10.129 Alcohol abuse with intoxication, unspecified; Z95.5 Presence of coronary angioplasty implant and graft; Z85.038 Personal history of other malignant neoplasm of large intestine; Z87.442 Personal history of urinary calculi; Z85.46 Personal history of malignant neoplasm of prostate; Z68.31 Body mass index [BMI] 31.0-31.9, adult; Z96.651 Presence of right artificial knee joint
CPT/HCPCS: 36415; 70450-TC; 71045-TC-FY; 73560-TC-RT-FY; 73700-TC-RT; 76000-TC-FY; 80048; 80053; 80307; 82550; 82553; 82962; 83036; 83735; 84439; 84443; 84480; 84484; 84550; 85025; 85027; 85610; 90670; 93005; 93010; 94760; 97116-GP; 97162-GP; 99283-25; J0131; J1439; J7030

== ENCOUNTER 2020-05-06 05:26 | Day surgery (SDC) | payer OTHER ==
[2020-05-02 13:10] VITALS: BMI 33.3
[2020-05-06] MEDS ORDERED: MIDAZOLAM HCL 2 MG/2 ML SINGLE DOSE VIAL ONE (11:30)
[2020-05-06] MEDS ORDERED: KETOROLAC TROMETHAMINE 30 MG/1 ML VIAL ONE (11:46)
--- NOTE | 2020-05-06 12:01 | PREOP ---
DATE OF ADMISSION: 05/06/2020 Patient is a 69-year-old male who presents with right flank pain intermittent in nature, also has dysuria and frequency, several episodes of intermittent gross hematuria, and has passed several stones in the past. An ultrasound of the kidney reveals a 5- to 7-mm stone in the right renal pelvis. Patient does have persistent microscopic hematuria. He also has history of diabetes, hypertension, peripheral neuropathy, dyslipidemia, and lumbago. He is ALLERGIC to PENICILLIN. His abdomen is soft. There is right CVA tenderness. Right lower quadrant tenderness. Genitalia are atraumatic. There is an inflatable penile prosthesis. The patient is status post a radical retropubic prostatectomy. Rectal exam revealed an empty fossa. Extremities revealed full range of motion with no cyanosis, clubbing, or edema. A urinalysis is large for blood. The patient's BUN 10/creatinine 1.0. His PSA is 0.02. Impression at present is microscopic hematuria with a right renal stone that is symptomatic. The patient will undergo a right extracorporeal shock wave lithotripsy. This was explained to detail to patient, and he agrees. LEONIE JOHNSON M.D. [id number]
--- NOTE | 2020-05-06 13:00 | OP ---
DATE OF OPERATION: 05/06/2020 PREOPERATIVE DIAGNOSIS: Right kidney stone, hematuria. POSTOPERATIVE DIAGNOSIS: Right kidney stone, hematuria. OPERATIVE PROCEDURE: Right extracorporeal shockwave lithotripsy. ANESTHESIA: General. SURGEON: Basil Crisostomo MD DETAILS OF PROCEDURE: Under above stated anesthesia, the patient is prepped and draped in the usual sterile manner. He is placed in the supine position. After proper positioning on the table, the stone was localized in the right lower pole of the right kidney. The patient received 1500 shocks at an energy of 18 and 1000 shocks at an energy of 20. It appeared there was good fragmentation. The patient tolerated the procedure well. He returned to the recovery room in good condition. Dana DE [id number]
[2020-05-06 14:25] VITALS: BP 126/73; PULSE 87; TEMP 97.1
== END 2020-05-06 13:45 | disposition home or self-care (01) ==
LOC: JASU-SURG 05:26
PROVIDERS: ATTEND Urology
PROC: 0TF3XZZ Fragmentation in Right Kidney Pelvis, External Approach (ICD-10-PCS; principal; 2020-05-06 11:30)
DX: N20.0 Calculus of kidney (principal); R31.9 Hematuria, unspecified

== ENCOUNTER 2020-12-10 04:30 | Day surgery (SDC) | payer OTHER ==
[2020-12-08 16:11] VITALS: BMI 31.6
[~2020-12-10 04:30] MED LIST: BSS (NA/CA/MG/K) BALANCED SALT SOLUTION OPHTH SOLN 15 ML BOTTLE OD ONE; CHONDROITIN SU A/HYALUR SOD 1 KIT IO ONE; LIDOCAINE HCL 1% PRESERVATIVE FREE - 30ML VIAL IO ONE; OFLOXACIN 0.3% OPHTHALMIC SOLUTION 5 ML BOTTLE OP SCH; PHENYLEPHRINE/KETOROLAC 4 ML VIAL IO ONE; POVIDONE-IODINE 5% OPHTHALMIC PREP 30 ML SOLUTION OD ONE; TETRACAINE 0.5% OPHTH SOLN 2 ML BOTTLE TP ONE; TRYPAN BLUE 0.5 ML DISP.SYRIN IO ONE
[2020-12-10] MEDS ORDERED: LIDOCAINE HCL/PF 1% SDV 5ML VIAL ONE (07:12)
[2020-12-10] MEDS ORDERED: CHONDROITIN SU A/HYALUR SOD 1 KIT ONE (07:12)
[2020-12-10] MEDS ORDERED: TETRACAINE 0.5% OPHTH SOLN 2 ML BOTTLE ONE (07:12)
[2020-12-10] MEDS ORDERED: POVIDONE-IODINE 5% OPHTHALMIC PREP 30 ML SOLUTION ONE (07:12)
[2020-12-10] MEDS ORDERED: PHENYLEPHRINE/KETOROLAC 4 ML VIAL IO SCH (07:45)
[2020-12-10] MEDS ORDERED: OFLOXACIN 0.3% OPHTHALMIC SOLUTION 5 ML BOTTLE ONE (07:45)
[2020-12-10] MEDS ORDERED: TROPICAMIDE 1% OPHTH SOLN 15 ML BOTTLE ONE (07:45)
[2020-12-10] MEDS ORDERED: CYCLOPENTOLATE HCL 1% OPHTH SOLN 2 ML BOTTLE ONE (07:46)
[2020-12-10] MEDS ORDERED: KETOROLAC TROMETHAMINE 0.5% EYE DROP 1 DROP DROPS ONE (07:46)
[2020-12-10] MEDS ORDERED: CYCLOPENTOLATE HCL 1% OPHTH SOLN 2 ML BOTTLE OD ONE ×3 (08:00→08:10)
[2020-12-10] MEDS ORDERED: TROPICAMIDE 1% OPHTH SOLN 15 ML BOTTLE OD ONE ×2 (08:00→08:05)
[2020-12-10] MEDS ORDERED: KETOROLAC TROMETHAMINE 0.5% EYE DROP 1 DROP DROPS OD ONE ×3 (08:00→08:10)
[2020-12-10] MEDS ORDERED: OFLOXACIN 0.3% OPHTHALMIC SOLUTION 5 ML BOTTLE OD ONE ×3 (08:00→08:10)
[2020-12-10] MEDS ORDERED: PHENYLEPHRINE 2.5% OPHTH SOLN 15 ML BOTTLE OD ONE ×3 (08:00→08:10)
[2020-12-10] MEDS ORDERED: TROPICAMIDE 0.5% OPHTHALMIC SOLN 15 ML BOTTLE OD ONE (08:10)
[2020-12-10] MEDS ORDERED: MIDAZOLAM HCL 2 MG/2 ML SINGLE DOSE VIAL ONE (09:04)
[2020-12-10] MEDS ORDERED: TETRACAINE 0.5% OPHTH SOLN 2 ML BOTTLE TP ONE (09:06)
[2020-12-10] MEDS ORDERED: TRYPAN BLUE 0.5 ML DISP.SYRIN ONE (09:06)
[2020-12-10] MEDS ORDERED: POVIDONE-IODINE 5% OPHTHALMIC PREP 30 ML SOLUTION OD ONE (09:08)
[2020-12-10] MEDS ORDERED: LIDOCAINE HCL 1% PRESERVATIVE FREE - 30ML VIAL IO ONE (09:12)
[2020-12-10] MEDS ORDERED: TRYPAN BLUE 0.5 ML DISP.SYRIN IO ONE (09:12)
[2020-12-10] MEDS ORDERED: BSS (NA/CA/MG/K) BALANCED SALT SOLUTION OPHTH SOLN 15 ML BOTTLE OD ONE (09:12)
[2020-12-10] MEDS ORDERED: CHONDROITIN SU A/HYALUR SOD 1 KIT IO ONE (09:12)
[2020-12-10] MEDS ORDERED: PHENYLEPHRINE/KETOROLAC 4 ML VIAL IO ONE (09:21)
[2020-12-10] MEDS ORDERED: ACETAMINOPHEN 325 MG TABLET (FP) PO PRN (10:10)
[2020-12-10] MEDS ORDERED: CYCLOPENTOLATE HCL 1% OPHTH SOLN 2 ML BOTTLE OP SCH (10:15)
[2020-12-10] MEDS ORDERED: KETOROLAC TROMETHAMINE 0.5% EYE DROP 1 DROP DROPS OP SCH (10:15)
[2020-12-10] MEDS ORDERED: PHENYLEPHRINE 2.5% OPHTH SOLN 15 ML BOTTLE OP SCH (10:15)
[2020-12-10] MEDS ORDERED: TROPICAMIDE 1% OPHTH SOLN 15 ML BOTTLE OP SCH (10:15)
[2020-12-10 10:45] VITALS: BP 118/79; PULSE 85; TEMP 98.7
[2020-12-10] MEDS ORDERED: OFLOXACIN 0.3% OPHTHALMIC SOLUTION 5 ML BOTTLE OP SCH (10:45)
== END 2020-12-10 10:50 | disposition home or self-care (01) ==
LOC: JASU-SURG 04:30
PROVIDERS: ATTEND Ophthalmology
PROC: 08RJ3JZ Replacement of Right Lens with Synthetic Substitute, Percutaneous Approach (ICD-10-PCS; principal; 2020-12-10 09:00)
DX: H26.9 Unspecified cataract (principal)
CPT/HCPCS: J1097

== ENCOUNTER 2021-06-22 15:14 | Emergency (ER) | payer OTHER ==
[2021-06-22 16:14] VITALS: BP 115/78; PULSE 120; TEMP 97.8; BMI 29.5
[2021-06-22] MEDS ORDERED: NAPROXEN 500 MG TABLET PO ONE (17:17)
[2021-06-22] MEDS ORDERED: NAPROXEN 500 MG TABLET ONE (17:21)
== END 2021-06-22 18:39 | disposition home or self-care (01) ==
LOC: JERFT 15:14
DX: M54.42 Lumbago with sciatica, left side (principal)
CPT/HCPCS: 99283-25

== ENCOUNTER 2023-10-13 04:28 | Day surgery (SDC) | payer OTHER ==
[2023-10-11 12:26] VITALS: BMI 31.0
[2023-10-13 12:43] VITALS: TEMP 97.1
[2023-10-13 13:05] VITALS: BP 125/71; PULSE 75; RESP 18
== END 2023-10-13 13:30 | disposition home or self-care (01) ==
LOC: JASU-ENDO 04:28
PROVIDERS: ATTEND Internal Medicine Gastroenterology
PROC: 0DBL8ZX Excision of Transverse Colon, Via Natural or Artificial Opening Endoscopic, Diagnostic (ICD-10-PCS; 2023-10-13)
PROC: 0DBM8ZX Excision of Descending Colon, Via Natural or Artificial Opening Endoscopic, Diagnostic (ICD-10-PCS; principal; 2023-10-13 11:30)
DX: D12.3 Benign neoplasm of transverse colon (principal); D12.4 Benign neoplasm of descending colon; K64.8 Other hemorrhoids; Z85.038 Personal history of other malignant neoplasm of large intestine; Z86.010 Personal history of colon polyps
CPT/HCPCS: 88305-TC